=== PATIENT | male | born 1955 | race Caucasian/White ===

== ENCOUNTER → 2024-04-18 09:01 | Outpatient (CLI) | payer MEDICARE, SELFPAY ==
[2024-04-18 10:18] LABS: Add Manual Diff / Slide Review NO; Basophils Absolute Auto 0 /uL (0-100); Basophils Percent Auto 0.3 % (0-2); Eosinophils Absolute Auto 200 /uL (0-450); Eosinophils Percent Auto 1.8 % (2-4); Hematocrit 33.8 % (41-53); Hemoglobin 11.1 g/dL (13.5-17.5); Lymphocytes Absolute Auto 800 /uL (1100-4500); Lymphocytes Percent Auto 9.6 % (25-40); Mean Corpuscular HGB Conc 32.9 % (30-36); Mean Corpuscular Hemoglobin 29.9 PG (26-34); Mean Corpuscular Volume 91.1 fL (80-100); Monocytes Absolute Auto 700 /uL (0-900); Monocytes Percent Auto 8.1 % (3-14); Neutrophils Absolute Auto 6900 /uL (1500-7000); Neutrophils Percent Auto 80.2 % (50-75); Platelet Count 153 X10^3/uL (150-400); Red Blood Cell Count 3.71 X10^6/uL (4.5-5.9); Red Cell Distribution Width 14.6 % (11.6-14.8); White Blood Cell Count 8.7 X10^3/uL (4.5-11.0)
[2024-04-18 10:32] LABS: Hemoglobin A1C% w Est Avg Glu 6.7 % (4.0-6.0)
[2024-04-18 10:45] LABS: BUN Creatinine Ratio 28.6 (6-22); Blood Urea Nitrogen 32 mg/dL (9-20); Calcium 9.4 mg/dL (8.4-10.2); Carbon Dioxide 25 mmol/L (22-32); Chloride 109 mmol/L (98-107); Cholesterol 80 mg/dL (140-199); Estimated Glomerular Filt Rate > 60 mL/min (>60); Glucose 103 mg/dL (80-110); HDL Cholesterol 43 mg/dL (40-60); HEMOLYSIS < 15 (0-50); LDL Cholesterol Calculated 24 mg/dL (<100); Sodium 141 mmol/L (137-145); Triglycerides 66 mg/dL (35-150)
== END ==
PROVIDERS: PCP Nurse Practitioner Family; Referring Provider Nurse Practitioner Family; Visit Provider Nurse Practitioner Family
DX: L02.91 Cutaneous abscess, unspecified (principal); E11.9 Type 2 diabetes mellitus without complications; I10 Essential (primary) hypertension; E78.5 Hyperlipidemia, unspecified
CPT/HCPCS: 36415; 80048; 80061; 83036; 85025; 87070; 87075; 87205

== ENCOUNTER → 2024-06-19 11:21 | Outpatient (CLI) | payer MEDICARE, SELFPAY ==
--- NOTE | 2024-06-19 11:23 | DI.RAD.S_ITS ---
PROCEDURE: XR ANKLE LT MIN 3V INDICATIONS: Wound on medial malleolus, concern for osteomyelitis TECHNIQUE: 3 views of the ankle were acquired. COMPARISON: None. FINDINGS: Bones: No fractures or dislocations. Ankle mortise is normally aligned. No suspicious bony lesions. Soft tissues: No tibiotalar joint effusion. Achilles tendon appears normal. Moderate peripheral vascular calcification. No radiodense foreign bodies. No soft tissue gas. IMPRESSION: No radiographic evidence of osteomyelitis, however radiographs are insensitive in the early phase, and if there is further concern for osteomyelitis, MR imaging is recommended. Dictated by: Rose Benavides M.D. on 06/19/2024 at 14:50 Approved by: Rose Benavides M.D. on 06/19/2024 at 14:52
== END ==
PROVIDERS: PCP Nurse Practitioner Family; Referring Provider Nurse Practitioner Family; Visit Provider Nurse Practitioner Family
DX: E11.621 Type 2 diabetes mellitus with foot ulcer (principal); L97.509 Non-pressure chronic ulcer of other part of unspecified foot with unspecified severity; I70.202 Unspecified atherosclerosis of native arteries of extremities, left leg
CPT/HCPCS: 73610

== ENCOUNTER → 2024-06-26 09:02 | Outpatient (CLI) | payer MEDICARE, SELFPAY | LOC: WC 09:06 | PROVIDERS: PCP Nurse Practitioner Family; Referring Provider Nurse Practitioner Family; Visit Provider Surgery | DX: E11.621 Type 2 diabetes mellitus with foot ulcer (principal); L97.322 Non-pressure chronic ulcer of left ankle with fat layer exposed; L53.8 Other specified erythematous conditions; L08.9 Local infection of the skin and subcutaneous tissue, unspecified | CPT/HCPCS: 11042; 87070; 87075; 87205; 99203; 99214 ==

== ENCOUNTER → 2024-07-03 08:25 | Outpatient (CLI) | payer MEDICARE, SELFPAY ==
--- NOTE | 2024-07-03 08:26 | DI.US.S_ITS ---
PROCEDURE: US ARTERIAL DUPLEX LE LT INDICATIONS: eval arterial status TECHNIQUE: Color and pulse Doppler interrogation was performed of the left lower extremity arterial system, with image documentation. COMPARISON: None. FINDINGS: Common femoral artery: 127 cm/sec, with biphasic flow. Deep femoral artery: 65 cm/sec, with biphasic flow. Proximal superficial femoral artery: 97 cm/sec, with biphasic flow. Mid superficial femoral artery: 95 cm/sec, with biphasic flow. Distal superficial femoral artery: 71 cm/sec, with biphasic flow. Popliteal artery: 69 cm/sec, with biphasic flow. Posterior tibial artery: 75 cm/sec, with biphasic flow. Anterior tibial artery/dorsalis pedis: 38 cm/sec, with biphasic flow. Rodriguez-scale imaging description: Mild degree of plaque throughout the left lower extremity arterial system. IMPRESSION: No hemodynamically significant stenosis involving left lower extremity arterial system. Dictated by: Mayco Browne M.D. on 07/03/2024 at 11:38 Approved by: Mayco Browne M.D. on 07/03/2024 at 11:39
== END ==
LOC: US 08:26
PROVIDERS: PCP Nurse Practitioner Family; Referring Provider Surgery; Visit Provider Surgery
DX: E11.621 Type 2 diabetes mellitus with foot ulcer (principal); L97.529 Non-pressure chronic ulcer of other part of left foot with unspecified severity
CPT/HCPCS: 93926

== ENCOUNTER → 2024-07-04 08:19 | Outpatient (CLI) | payer MEDICARE, SELFPAY | PROVIDERS: PCP Nurse Practitioner Family; Referring Provider Nurse Practitioner Family; Visit Provider Surgery | DX: E11.622 Type 2 diabetes mellitus with other skin ulcer (principal); L97.322 Non-pressure chronic ulcer of left ankle with fat layer exposed; L53.8 Other specified erythematous conditions | CPT/HCPCS: 11042 ==

== ENCOUNTER → 2024-07-11 08:37 | Outpatient (CLI) | payer MEDICARE, SELFPAY | PROVIDERS: PCP Nurse Practitioner Family; Referring Provider Nurse Practitioner Family; Visit Provider Surgery | DX: L97.322 Non-pressure chronic ulcer of left ankle with fat layer exposed (principal); E11.621 Type 2 diabetes mellitus with foot ulcer; L53.9 Erythematous condition, unspecified; B35.9 Dermatophytosis, unspecified | CPT/HCPCS: 11042 ==

== ENCOUNTER → 2024-07-18 08:11 | Outpatient (CLI) | payer MEDICARE, SELFPAY | LOC: WC 08:54 | PROVIDERS: PCP Nurse Practitioner Family; Referring Provider Nurse Practitioner Family; Visit Provider Surgery | DX: E11.621 Type 2 diabetes mellitus with foot ulcer (principal); L97.322 Non-pressure chronic ulcer of left ankle with fat layer exposed; R23.4 Changes in skin texture; L53.9 Erythematous condition, unspecified; B35.9 Dermatophytosis, unspecified | CPT/HCPCS: 11042 ==

== ENCOUNTER → 2024-07-25 08:41 | Outpatient (CLI) | payer MEDICARE, SELFPAY | LOC: WC 08:43 | PROVIDERS: PCP Nurse Practitioner Family; Referring Provider Nurse Practitioner Family; Visit Provider Surgery | DX: E11.621 Type 2 diabetes mellitus with foot ulcer (principal); L97.322 Non-pressure chronic ulcer of left ankle with fat layer exposed; R23.4 Changes in skin texture; R21 Rash and other nonspecific skin eruption; L53.8 Other specified erythematous conditions | CPT/HCPCS: 11042 ==

== ENCOUNTER → 2024-07-29 11:10 | Outpatient (CLI) | payer MEDICARE, SELFPAY ==
[2024-07-29 11:54] LABS: Hemoglobin A1C% w Est Avg Glu 6.1 % (4.0-6.0)
[2024-07-29 15:14] LABS: Add Manual Diff / Slide Review NO; Basophils Absolute Auto 100 /uL (0-100); Basophils Percent Auto 0.7 % (0-2); Eosinophils Absolute Auto 200 /uL (0-450); Eosinophils Percent Auto 2.3 % (2-4); Hematocrit 33.1 % (41-53); Hemoglobin 10.6 g/dL (13.5-17.5); Lymphocytes Absolute Auto 800 /uL (1100-4500); Lymphocytes Percent Auto 9.6 % (25-40); Mean Corpuscular HGB Conc 32.2 % (30-36); Monocytes Absolute Auto 400 /uL (0-900); Monocytes Percent Auto 5.2 % (3-14); Neutrophils Absolute Auto 6700 /uL (1500-7000); Neutrophils Percent Auto 82.2 % (50-75); Platelet Count 250 X10^3/uL (150-400); Red Cell Distribution Width 16.9 % (11.6-14.8); White Blood Cell Count 8.2 X10^3/uL (4.5-11.0)
== END ==
PROVIDERS: PCP Nurse Practitioner Family; Referring Provider Nurse Practitioner Family; Visit Provider Nurse Practitioner Family
DX: E11.9 Type 2 diabetes mellitus without complications (principal); N40.0 Benign prostatic hyperplasia without lower urinary tract symptoms; F32.A Depression, unspecified; I10 Essential (primary) hypertension; E78.5 Hyperlipidemia, unspecified
CPT/HCPCS: 36415; 83036; 85025

== ENCOUNTER → 2024-07-31 10:46 | Outpatient (CLI) | payer MEDICARE, SELFPAY ==
[2024-07-31 12:16] LABS: Creatinine Urine Random 99.05 mg/dL
[2024-07-31 12:34] LABS: Microalbumin Urine Random 34.9 mg/dL (0-1.6)
[2024-07-31 13:08] LABS: HEMOLYSIS < 15 (0-50); Iron 60 ug/dL (49-181)
[2024-07-31 13:23] LABS: Percent Iron Saturation 17 % (20-50); Total Iron Binding Capacity 357 ug/dL (261-462); Transferrin 304 mg/dL (206-381)
[2024-07-31 13:53] LABS: TSH w/ Reflex to FT4 4.71 uIU/mL (0.47-4.68)
[2024-07-31 14:12] LABS: Vitamin B12 365 pg/mL (239-931)
[2024-07-31 15:27] LABS: Free T4, Direct Thyroxine 1.84 ng/dL (0.78-2.19)
== END ==
PROVIDERS: PCP Nurse Practitioner Family; Referring Provider Nurse Practitioner Family; Visit Provider Nurse Practitioner Family
DX: E11.9 Type 2 diabetes mellitus without complications (principal); L02.91 Cutaneous abscess, unspecified; I10 Essential (primary) hypertension; D64.9 Anemia, unspecified
CPT/HCPCS: 36415; 82043; 82570; 82607; 83540; 83550; 84439; 84443

== ENCOUNTER → 2024-08-01 09:49 | Outpatient (CLI) | payer MEDICARE, SELFPAY | LOC: WC 09:58 | PROVIDERS: PCP Nurse Practitioner Family; Referring Provider Nurse Practitioner Family; Visit Provider Surgery | DX: E11.621 Type 2 diabetes mellitus with foot ulcer (principal); L97.322 Non-pressure chronic ulcer of left ankle with fat layer exposed; L53.8 Other specified erythematous conditions; R21 Rash and other nonspecific skin eruption; R23.4 Changes in skin texture | CPT/HCPCS: 11042 ==

== ENCOUNTER → 2024-08-02 08:50 | Outpatient (CLI) | payer MEDICARE, SELFPAY ==
--- NOTE | 2024-11-22 09:36 | DIAB.MNT ---
Initial Diabetes Medical Nutrition Therapy Assessment Name: Tone Cason Date: 08/02/24 Time: 9-10a Dx: Type II Diabetes Tone presents for initial DM visit with sister, Kiersten. Dx in 1998. PMH of stroke. GI upset. Endorses emesis q 5 days. PMH of gastroparesis. FH of DM with mother, sister, and maternal grandmother. uses [employer] Whe[employer] (M[employer]). Treats lows with ice cream. Likes salad. Going to wound care for LE wound. Uses ac insulin on SSI. Sister cooks meals. When BG is low, endorses fatigue, shaky, confusion. Reuses injection needles. Not using sharps container to dispose of needles. Wants simple healthy meal ideas. Diet Recall: sn: premier protein shake L: banan 1-2 OR shredded wheat with milk +/- sugar OR MOW fruit or salad D: pizza x2 slices OR frozen meal (noodles/chx/broccoli OR potatoes/ham Protein snacks through the day: nuts, protein bars water 60oz +, crystal light Not taking long acting insulin, only using correction. If BG 150-- 2-3u of ac insulin BG 200s-- 5u BG 300s-- 8-10u Anthropometrics: Ht: 5'10 Wt: 176# Physical Activity: Not discussed Self-Monitoring Blood Glucose: CGM use with in range time at goal. Some excessive tiem >250mg/dl. Most elevations occur after meals. 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 Provided appropriate educational handouts. Discussed the following topics: Completed intake assessment. Discussed barriers to care. Plate Method, impact of macronutrients on blood sugar, meal timing, pairing macronutrients and spreading out carbohydrates for better blood glucose management Recommended servings for carbohydrates at meals and snacks Brainstormed appropriate meal/snack ideas based on food preferences Safe disposal of sharps and injection technique Created SMART goals for patient self-care and success. Goals: Try a new meal Track food/insulin in CGM Try 10u long acting insulin, as rx'd only use short acting if >200mg/dl Ask pharmacy for shorter needles Change injection needle with each use Use proper disposal of sharps Follow-up: NISH LYNEN follow-up in 2-3 weeks Alma Hernandez RDN, MAGED Certified Diabetes Care and Athletic Trainer P: [phone] Thank you for this referral
== END ==
PROVIDERS: PCP Nurse Practitioner Family; Referring Provider Nurse Practitioner Family
DX: E11.9 Type 2 diabetes mellitus without complications (principal); Z86.73 Personal history of transient ischemic attack (TIA), and cerebral infarction without residual deficits; Z71.3 Dietary counseling and surveillance; Z83.3 Family history of diabetes mellitus; Z79.84 Long term (current) use of oral hypoglycemic drugs
CPT/HCPCS: 97802

== ENCOUNTER → 2024-08-08 08:41 | Outpatient (CLI) | payer MEDICARE, SELFPAY | LOC: WC 08:46 | PROVIDERS: PCP Nurse Practitioner Family; Referring Provider Nurse Practitioner Family; Visit Provider Surgery | DX: L97.322 Non-pressure chronic ulcer of left ankle with fat layer exposed (principal); E11.621 Type 2 diabetes mellitus with foot ulcer; L53.9 Erythematous condition, unspecified; R21 Rash and other nonspecific skin eruption; R23.4 Changes in skin texture | CPT/HCPCS: 11042; 99213 ==

== ENCOUNTER → 2024-08-10 08:52 | Outpatient (CLI) | payer MEDICARE, SELFPAY ==
--- NOTE | 2024-08-10 08:53 | DI.MRI.S_ITS ---
PROCEDURE: MR ANKLE LT WO/W CON INDICATIONS: eval for osteo TECHNIQUE: Noncontrast sagittal T1 spin echo and T2 fast spin echo with fat saturation, axial proton density fast spin echo and T2 fast spin echo with fat saturation, axial T1 spin echo with fat saturation, coronal T1 spin echo and T2 fast spin echo with fat saturation through the ankle/hindfoot. Post-contrast axial, coronal, and sagittal T1 spin echo with fat saturation through the ankle/hindfoot. COMPARISON: [facility], CR, XR ANKLE LT MIN 3V, 06/19/2024, 11:19. FINDINGS: Image quality: Excellent. Bones and joints: Mild midfoot and hindfoot joint osteoarthritic changes are seen with joint space narrowing and subchondral sclerosis. There is very mild marrow edema involving lateral periphery of lateral malleolus tip without discrete fracture line or cortical erosion. No area of abnormal intraosseous enhancement. No hindfoot coalitions. No osteochondral injuries of the talar dome. Small amount of tibiotalar joint effusion, no gross loose bodies. Medial structures: Subcutaneous soft tissue edema over medial malleolus is seen. No discrete drainable peripherally enhancing fluid collection is identified. The posterior tibialis tendon is mildly thickened at the level of distal talus and talonavicular joint. The flexor digitorum longus, and flexor hallucis longus tendons are intact. The posterior tibial neurovascular bundle appears normal within the tarsal tunnel, without extrinsic mass effect. The deltoid ligament and spring ligament are intact. Lateral structures: The anterior talofibular, calcaneofibular, and posterior talofibular ligaments appear intact. More superiorly, the anterior and posterior tibiofibular ligaments appear intact, as is the intermalleolar ligament. The tibiofibular syndesmosis is normal in width at 2 mm or less. The peroneus brevis tendon is intact. Peroneus longus tendinosis at the level of lateral malleolus tip extending to the level of cuboid bone is seen. The sinus tarsi demonstrates normal fatty signal, without edema, fibrosis, or cyst formation. Anterior structures: The tibialis anterior, extensor hallucis longus, and extensor digitorum longus tendons appear intact. The dorsal talonavicular ligament appears intact. Posterior and plantar structures: Achilles tendon is intact. Medial and lateral bands of the plantar fascia are of normal thickness. No abductor digiti quinti muscle atrophy to suggest Mehta neuropathy. IMPRESSION: 1. Soft tissue edema and swelling over medial malleolus without discrete drainable abscess collection. Small joint effusion, no intra-articular loose bodies. 2. Mild midfoot and hindfoot joint osteoarthritis. No evidence of osteomyelitis. Nonspecific mild edema involving lateral periphery of lateral malleolus tip which may represent contusion. No area of abnormal intraosseous enhancement. 3. Mild tendinosis involving posterior tibialis tendon at the level of distal talus and talonavicular joint. Mild tendinosis also seen involving peroneus longus tendon at the level of lateral malleolus tip extending to the level of cuboid. 4. Ankle ligaments are intact. No enhancing soft tissue mass. Dictated by: John Pedersen M.D. on 08/12/2024 at 8:38 Approved by: John Pedersen M.D. on 08/12/2024 at 8:46
== END ==
PROVIDERS: PCP Nurse Practitioner Family; Referring Provider Surgery; Visit Provider Surgery
DX: L97.322 Non-pressure chronic ulcer of left ankle with fat layer exposed (principal); M25.472 Effusion, left ankle; M19.072 Primary osteoarthritis, left ankle and foot; R60.0 Localized edema
CPT/HCPCS: 73723; A9579

== ENCOUNTER → 2024-08-14 08:53 | Outpatient (CLI) | payer MEDICARE, SELFPAY | LOC: WC 08:54 | PROVIDERS: PCP Nurse Practitioner Family; Referring Provider Nurse Practitioner Family; Visit Provider Surgery | DX: E11.622 Type 2 diabetes mellitus with other skin ulcer (principal); L97.322 Non-pressure chronic ulcer of left ankle with fat layer exposed; R23.4 Changes in skin texture; R21 Rash and other nonspecific skin eruption; L53.8 Other specified erythematous conditions | CPT/HCPCS: 97602; 99213 ==

== ENCOUNTER → 2024-09-06 10:50 | Outpatient (CLI) | payer MEDICARE, SELFPAY ==
[2024-09-06 12:16] LABS: Add Manual Diff / Slide Review NO; Basophils Absolute Auto 0 /uL (0-100); Basophils Percent Auto 0.6 % (0-2); Eosinophils Absolute Auto 200 /uL (0-450); Eosinophils Percent Auto 3.2 % (2-4); Hematocrit 38.6 % (41-53); Hemoglobin 12.6 g/dL (13.5-17.5); Lymphocytes Absolute Auto 800 /uL (1100-4500); Lymphocytes Percent Auto 14.6 % (25-40); Mean Corpuscular HGB Conc 32.7 % (30-36); Mean Corpuscular Hemoglobin 28.3 PG (26-34); Mean Corpuscular Volume 86.7 fL (80-100); Monocytes Absolute Auto 400 /uL (0-900); Monocytes Percent Auto 6.9 % (3-14); Neutrophils Absolute Auto 4200 /uL (1500-7000); Neutrophils Percent Auto 74.7 % (50-75); Platelet Count 163 X10^3/uL (150-400); Red Blood Cell Count 4.46 X10^6/uL (4.5-5.9); Red Cell Distribution Width 16.4 % (11.6-14.8); White Blood Cell Count 5.6 X10^3/uL (4.5-11.0)
[2024-09-06 12:30] LABS: Hemoglobin A1C% w Est Avg Glu 6.3 % (4.0-6.0)
[2024-09-06 12:35] LABS: Alanine Aminotransferase 55 IU/L (<50); Albumin 4.7 g/dL (3.5-5.0); Alkaline Phosphatase 76 U/L (38-126); Aspartate Aminotransferase 40 IU/L (17-59); BUN Creatinine Ratio 20.9 (6-22); Bilirubin Total 0.5 mg/dL (0.2-1.3); Blood Urea Nitrogen 27 mg/dL (9-20); Calcium 9.7 mg/dL (8.4-10.2); Carbon Dioxide 29 mmol/L (22-32); Chloride 103 mmol/L (98-107); Estimated Glomerular Filt Rate > 60 mL/min (>60); Globulin 2.3 g/dL (1.7-4.1); Glucose 77 mg/dL (80-110); HEMOLYSIS < 15 (0-50); Potassium 4.8 mmol/L (3.4-5.1); Sodium 141 mmol/L (137-145)
[2024-09-06 13:00] LABS: TSH w/ Reflex to FT4 4.83 uIU/mL (0.47-4.68)
[2024-09-06 13:28] LABS: Free T4, Direct Thyroxine 1.61 ng/dL (0.78-2.19)
== END ==
PROVIDERS: PCP Nurse Practitioner Family; Referring Provider Nurse Practitioner Family; Visit Provider Nurse Practitioner Family
DX: E11.9 Type 2 diabetes mellitus without complications (principal); I10 Essential (primary) hypertension; Z86.73 Personal history of transient ischemic attack (TIA), and cerebral infarction without residual deficits; R79.89 Other specified abnormal findings of blood chemistry
CPT/HCPCS: 36415; 80053; 83036; 84439; 84443; 85025

== ENCOUNTER → 2024-10-25 07:16 | Outpatient (CLI) | payer MEDICARE, SELFPAY ==
[2024-10-25 08:55] LABS: Hemoglobin A1C% w Est Avg Glu 6.1 % (4.0-6.0)
[2024-10-25 09:31] LABS: TSH w/ Reflex to FT4 5.75 uIU/mL (0.47-4.68)
[2024-10-25 10:47] LABS: Free T4, Direct Thyroxine 1.59 ng/dL (0.78-2.19)
== END ==
PROVIDERS: PCP Nurse Practitioner Family; Referring Provider Nurse Practitioner Family; Visit Provider Nurse Practitioner Family
DX: E78.2 Mixed hyperlipidemia (principal); I10 Essential (primary) hypertension; R79.89 Other specified abnormal findings of blood chemistry; E11.628 Type 2 diabetes mellitus with other skin complications
CPT/HCPCS: 36415; 83036; 84439; 84443

== ENCOUNTER → 2024-10-31 11:09 | Outpatient (CLI) | payer MEDICARE, SELFPAY ==
--- NOTE | 2024-10-31 11:12 | DI.RAD.S_ITS ---
PROCEDURE: XR SHOULDER LT 3V INDICATIONS: Left shoulder pain after fall rule out dislocation TECHNIQUE: 3 views of the shoulder were acquired. COMPARISON: None. FINDINGS: [id number] degenerative changes of the left acromioclavicular and glenohumeral joints with joint space narrowing and osteophytes. No radiographic evidence of displaced fracture, dislocation or high attenuation soft tissue foreign body. Median sternotomy, CABG, left atrial appendage clip, of vascular calcifications partially imaged. IMPRESSION: Degenerative changes left shoulder. If symptoms persist or worsen, or there is high clinical suspicion of left shoulder abnormality, MRI could be performed. Dictated by: Lawrence Banks M.D. on 10/31/2024 at 22:02 Approved by: Lawrence Banks M.D. on 10/31/2024 at 22:04
== END ==
PROVIDERS: PCP Nurse Practitioner Family; Referring Provider Nurse Practitioner Family; Visit Provider Nurse Practitioner Family
DX: M25.512 Pain in left shoulder (principal)
CPT/HCPCS: 73030

== ENCOUNTER → 2024-11-13 13:50 | Outpatient (CLI) | payer MEDICARE, SELFPAY ==
--- NOTE | 2024-11-22 09:52 | DIAB.MNTFU ---
Follow-up Diabetes Medical Nutrition Therapy Assessment Name: Tone Cason Date: 11/13/24 Time: 2-3p Dx: Type II Diabetes Tone presents for DM visit with sister, Kiersten. Dx in 1998. PMH of stroke. Eating q 1-2 hours. If BG >170mg/dl takes short acting insulin 7u. If >150 and rising will take 5u. Increased lows since last visit. If waking with 100mg/dl or less, holding long acting insulin. Cut out potatoes due to BG elevations. Not rotating injection sites. Is considering changing needles with each injection. has not started using proper sharps disposal. Not tracking food or insulin dosing. Reports limited function in left hand, which has impacted ability to change needle and wear he injections. Has had falls from lows per report. Diet Recall: 2p: 3-4 frozen burritos 3p Ramen or burrito grazing: berries, veggies, crackers, cheese, meat water, crystal light, tea d/c of premier protein Anthropometrics: Ht: 5'10 Wt: 167# 10/2024 176# 07/2024 Physical Activity: Not discussed Self-Monitoring Blood Glucose: CGM use with in range time at goal. Reduced hyperglycemia, however also increase lows. TIR: 4% very high 16% high 78% in range 2% low <1% very low avmg/dl GMI: 6.9% std dev: 47 mg/dl variation: 31.5% Last TIR: 5% very high 22% high 73% in range 0% low <1% very low avmg/dl GMI: 7.1% std dev: 50 mg/dl variation: 31% Diabetes Medications: 1000mg Metformin AM 500mg Metformin PM 10u Glargine AM SSI Pertinent Labs: HgA12c: 6.7% 03/2024 6.1% 07/2024 Past Medical History: (Last Updated 10/31/24 @ 09:57 by [facility] Anemia BPH (benign prostatic hyperplasia) Cervical radicular pain Depression Diabetes mellitus Gastroesophageal reflux disease Gastroparesis due to DM History of CVA (cerebrovascular accident) Hyperlipidemia Hypertension Infected sebaceous cyst 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 Provided appropriate educational handouts. Discussed the following topics: Proper treatment of lows Meal timing Importance of proper injection technique Sharps disposal CHO portions Created SMART goals for patient self-care and success. Goals: Try a new meal- in progress Track food/insulin in CGM- not met Try 10u long acting insulin, as rx'd- met only use short acting if >200mg/dl- not met Ask pharmacy for shorter needles- not met Change injection needle with each use- not met Use proper disposal of sharps- not met Try eating q 3-5 hours- new Reduce ac insulin to prevent lows - new Rotate injection sites- new Alan injection needles- new food and nutrition services supervisor jug for sharps- new Follow-up: NISH LYNNE follow-up in 3-4 weeks Alma Hernandez RDN, MAGED Certified Diabetes Care and Faculty Neuropsychologist P: [phone] Thank you for this referral
== END ==
LOC: DIET 13:51
PROVIDERS: PCP Nurse Practitioner Family; Referring Provider Nurse Practitioner Family
DX: E11.9 Type 2 diabetes mellitus without complications (principal); Z71.3 Dietary counseling and surveillance; Z79.84 Long term (current) use of oral hypoglycemic drugs; Z79.4 Long term (current) use of insulin
CPT/HCPCS: 97803

== ENCOUNTER → 2024-12-06 08:35 | Outpatient (CLI) | payer MEDICARE, SELFPAY ==
--- NOTE | 2024-12-06 09:04 | DIAB.FU ---
Follow-up Diabetes Education Assessment Name: Tone Cason Date: 12/06/24 Time: -081c Dx: Type II Diabetes Tone presents for DM visit. Dx in 1998. PMH of stroke. No longer snacking, but also only eating 1-2x per day. Portions are large with 3-4 burritos in a sitting (90-120g CHO) States meals have to be microwaveable due to limited abilities to cook. 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 She reportedly has dementia and he and his sister take shifts caring for her. Rotating sites, using abdomen. Changing needles more often, but not every time. Using sharps disposal appropriately. Main concern today are lows. Seem to occur after fast acting insulin. Either taking too much too late after eating OR taking without eating for correction dosing. Diet Recall: 5p: 3-4 frozen burritos or 4-5 mini corn dogs OR 4 chicken nuggets sn: nothing or ice cream water, crystal light, tea Anthropometrics: Ht: 5'10 Wt: 167# 10/2024 176# 07/2024 Physical Activity: Not discussed Self-Monitoring Blood Glucose: CGM use with in range time at goal. Reduced hyperglycemia and hypoglycemia since last visit. TIR: 3% very high 12% high 84% in range 1% low <1% very low avmg/dl GMI: 6.7% std dev: 46 mg/dl variation: 32.9% Last TIR: 4% very high 16% high 78% in range 2% low <1% very low avmg/dl GMI: 6.9% std dev: 47 mg/dl variation: 31.5% Diabetes Medications: 1000mg Metformin AM 500mg Metformin PM 10u Glargine AM SSI -- 5-7u Pertinent Labs: HgA12c: 6.7% 03/2024 6.1% 07/2024 Past Medical History: (Last Updated 10/31/24 @ 09:57 by Karen Dowell 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 Provided appropriate educational handouts. Discussed the following topics: Dosing insulin and avoiding lows Meal timing Small frequent meals Adding veggies to the day Correction dosing for elevations Insulin action time and rec dosing time Created SMART goals for patient self-care and success. Goals: Try eating q 3-5 hours- in progress Reduce ac insulin to prevent lows - in progress Rotate injection sites- met Change injection needles- improved oil well services superintendent jug for sharps- met eat raw veggies Try 3 small meals per day - new Try insulin changes (2-3u for correction, 5-6u pre meal)- new Follow-up: NISH LYNNE follow-up in 3-4 weeks Alma Hernandez RDN, MAGED Certified Diabetes Care and Assistant District Attorney P: [phone] Thank you for this referral
[2024-12-06 10:02] LABS: Cholesterol 163 mg/dL (140-199); HDL Cholesterol 65 mg/dL (40-60); Triglycerides 95 mg/dL (35-150)
[2024-12-06 10:04] LABS: Hemoglobin A1C% w Est Avg Glu 5.7 % (4.0-6.0)
== END ==
PROVIDERS: PCP Nurse Practitioner Family; Visit Provider Nurse Practitioner Family
DX: E11.9 Type 2 diabetes mellitus without complications (principal); Z79.84 Long term (current) use of oral hypoglycemic drugs; Z79.4 Long term (current) use of insulin; Z71.3 Dietary counseling and surveillance
CPT/HCPCS: 36415; 80061; 83036; 97803

== ENCOUNTER → 2024-12-12 09:49 | Outpatient (CLI) | payer MEDICARE, SELFPAY ==
[2024-12-12 10:50] LABS: Hematocrit 36.5 % (41-53); Hemoglobin 11.9 g/dL (13.5-17.5)
[2024-12-12 11:03] LABS: Blood Urea Nitrogen 31 mg/dL (9-20); Calcium 9.8 mg/dL (8.4-10.2); Carbon Dioxide 32 mmol/L (22-32); Chloride 102 mmol/L (98-107); Estimated Glomerular Filt Rate 53 mL/min (>60); Glucose 137 mg/dL (70-99); HEMOLYSIS < 15 (0-50); Iron 102 ug/dL (49-181); Phosphorous 4.3 mg/dL (2.3-3.7); Potassium 4.7 mmol/L (3.4-5.1); Sodium 142 mmol/L (137-145)
[2024-12-12 11:12] LABS: Total Iron Binding Capacity 401 ug/dL (261-462)
[2024-12-12 12:39] LABS: Protein (Total) Urine Random 12 mg/dL (0-12); Protein Creatinine Ratio Urine 0.64 GRAM/24H
== END ==
PROVIDERS: PCP Nurse Practitioner Family; Referring Provider Student in an Organized Health Care Education/Training Program; Visit Provider Student in an Organized Health Care Education/Training Program
DX: D50.0 Iron deficiency anemia secondary to blood loss (chronic) (principal); D63.1 Anemia in chronic kidney disease; D70.9 Neutropenia, unspecified; E83.30 Disorder of phosphorus metabolism, unspecified; N05.9 Unspecified nephritic syndrome with unspecified morphologic changes; N25.81 Secondary hyperparathyroidism of renal origin; R80.9 Proteinuria, unspecified
CPT/HCPCS: 36415; 80048; 82570; 83540; 83550; 83970; 84100; 84156; 85014; 85018

== ENCOUNTER 2024-12-23 12:18 | Observation (INO) | payer MEDICARE, SELFPAY ==
[2024-12-23] VITALS (17 sets, daily range): BP systolic 119–189; BP diastolic 61–86; PULSE 47–53; RESP 16–24; TEMP 36.1–36.7; O2SAT 95–99; BMI 25.8
--- NOTE | 2024-12-23 12:43 | DI.RAD.S_ITS ---
PROCEDURE: XR CHEST 1V INDICATIONS: Chest Pain TECHNIQUE: One view of the chest was acquired. COMPARISON: None. FINDINGS: Surgical changes and devices: Median sternotomy wires are seen. Lungs and pleura: Pulmonary vascular congestion. No definite focal infiltrate. No pleural effusions or pneumothorax. Mediastinum: Mediastinal contours appear normal. Heart size is enlarged. Bones and chest wall: No suspicious bony lesions. Overlying soft tissues appear unremarkable. IMPRESSION: Cardiomegaly and mild congestion. No definite focal infiltrate. No pleural effusion or pneumothorax. Dictated by: John Pedersen M.D. on 12/23/2024 at 13:14 Approved by: John Pedersen M.D. on 12/23/2024 at 13:15
--- NOTE | 2024-12-23 12:57 | EKG_ITS ---
[address] [id number] Test Date: 2024-12-23 Pat Name: Tone Cason Department: Room: 211 Gender: Male Service Operations Manager: ANDI : [id number] Requested By: Order Number: [id number] Reading MD: Mayco Capone Measurements Intervals [place] Rate: 49 P: 89 CO: 328 QRS: -20 QRSD: 112 T: 59 QT: 456 QTc: 411 Interpretive Statements Sinus bradycardia with 1st degree AV block Incomplete left bundle branch block Electronically Signed On 01-03-2025 8:48:57 PDT by Mayco Capone
[2024-12-23 13:00] LABS: Add Manual Diff / Slide Review NO; Hematocrit 33.9 % (41-53); Hemoglobin 11.1 g/dL (13.5-17.5); Lymphocytes Absolute Auto 900 /uL (1100-4500); Mean Corpuscular HGB Conc 32.6 % (30-36); Mean Corpuscular Hemoglobin 28.9 PG (26-34); Mean Corpuscular Volume 88.6 fL (80-100); Platelet Count 198 X10^3/uL (150-400)
[2024-12-23 13:06] LABS: INR 1.0 (0.9-1.3); Prothrombin Time 11.8 SECONDS (9.4-12.5)
[2024-12-23 13:09] LABS: PTT Partial Thromboplastin Tim 33 SECONDS (25.1-36.5)
[2024-12-23 13:14] LABS: Alanine Aminotransferase 14 IU/L (<50); Albumin 4.3 g/dL (3.5-5.0); Albumin Globulin Ratio 1.4 (1.0-2.8); Alkaline Phosphatase 74 U/L (38-126); Blood Urea Nitrogen 35 mg/dL (9-20); Calcium 9.4 mg/dL (8.4-10.2); Carbon Dioxide 25 mmol/L (22-32); Chloride 109 mmol/L (98-107); Creatine Kinase 77 U/L (55-170); Estimated Glomerular Filt Rate > 60 mL/min (>60); Globulin 3.0 g/dL (1.7-4.1); Glucose 131 mg/dL (70-99); HEMOLYSIS 25 (0-50); Lipase 21 U/L (23-300); Magnesium 1.8 mg/dL (1.6-2.3); Sodium 140 mmol/L (137-145); Total Protein 7.3 g/dL (6.3-8.2)
[2024-12-23 13:17] LABS: Potassium 5.6 mmol/L (3.4-5.1)
[2024-12-23 13:25] LABS: NT-proBNP (BNP-Adult 18+) 1470 pg/mL (<125); Troponin I < 0.012 ng/mL (0.01-0.034)
[2024-12-23 13:38] LABS: Influenza A - CEPHEID Flu A NEGATIVE (NEGATIVE); Influenza B - CEPHEID Flu B NEGATIVE (NEGATIVE)
[2024-12-23 13:45] LABS: COVID-19 CEPHEID 4-PLEX PCR Negative (Negative)
[2024-12-23] MEDS: FUROSEMIDE 40 MG/4 ML VIAL IV ×2 (15:32→20:28)
--- NOTE | 2024-12-23 16:15 | ED_ITS ---
HPI - Chest Pain General Chief Complaint: Chest Pain Stated Complaint: cough ,chest pain, wheezing Time Seen by Provider: 12/23/24 15:18 Source: patient Mode of arrival: Ambulatory History of Present Illness HPI narrative: 69-year-old male with a history of 4 vessel coronary artery bypass surgery presents with left-sided chest pain for the past 2 weeks off and on. He is a little short of breath as well and more so upon exertion. No history of congestive heart failure that he knows of. History of diabetes as well. Related Data Home Medications ?Medication ?Instructions ?Recorded ?Confirmed aspirin 81 mg tablet,delayed 81 mg PO DAILY 04/17/24 0 10/31/24 release ferrous gluconate 324 mg (38 mg 324 mg PO DAILY 10/31/24 iron) tablet fluoxetine 40 mg capsule 40 mg PO DAILY 10/31/2410/20 lisinopril 10 mg tablet 10 mg PO DAILY 10/31/2410/20 Previous Rx's ?Medication ?Instructions ?Recorded amiodarone 200 mg tablet 200 mg PO DAILY #90 tabs atorvastatin 80 mg tablet 80 mg PO DAILY #90 tabs 03/30 finasteride 5 mg tablet 5 mg PO DAILY #90 tabs 04/17 gabapentin 300 mg capsule 300 mg PO TID #180 caps 03/30 metoprolol tartrate 25 mg tablet 12.5 mg (12 x 25 mg) PO BID #90 04/17/24 tabs promethazine 25 mg tablet 25 mg PO Q6H PRN nausea and 04/17/24 vomiting #30 tabs tamsulosin 0.4 mg capsule 0.4 mg PO DAILY #90 caps erythromycin 250 mg tablet 250 mg PO TID #360 tabs 09/19 clotrimazole 1 % topical cream 1 applic topical BID 4 weeks #45 06/19/24 grams furosemide 40 mg tablet 40 mg PO DAILY #90 tabs 06/30 10/20 metoclopramide HCl 10 mg tablet 10 mg PO BID #180 tabs 07/23/24 ferrous gluconate 324 mg (37.5 mg 324 mg PO DAILY #90 tabs 08/02/24 iron) tablet fluoxetine 60 mg tablet 60 mg PO DAILY #90 tabs 08/27 12/20 metformin 500 mg tablet 1,000 mg (2 x 500 mg) PO BID WMEAL 09/26/24 #360 tabs omeprazole 40 mg capsule,delayed 40 mg PO DAILY 4 week s #90 caps 10/11/24 release ondansetron HCl 4 mg tablet 8 mg (2 x 4 mg) PO Q12H #3 0 tabs 10/11/24 insulin glargine 100 unit/mL (3 10 unit (0.1 mL) SUBCU T BID #15 mL 12/09/24 mL) subcutaneous pen (Lantus Solostar U-100 Insulin) Allergies Allergy/AdvReac Type Severity Reaction Status Date / Time doxycycline AdvReac Intermediate Vomiting Verified 12/23/24 12:37 donezepil AdvReac Mild Vomiting Uncoded 12/23/24 12:37 Review of Systems Review of Systems ROS Unobtainable: All systems reviewed & are unremarkable except as noted in HPI and below Patient History Medical History (Updated 12/23/24 @ 19:05 by Jacob Duckworth MD) CAD (coronary artery disease) Type 2 diabetes mellitus Gastroesophageal reflux disease Anemia Infected sebaceous cyst Cervical radicular pain Gastroparesis due to DM 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 Diabetes mellitus Skin abscess History of CVA (cerebrovascular accident) Risk for falls BPH (benign prostatic hyperplasia) Depression Hypertension Hyperlipidemia Social History Smoking Status: Never smoker Smoking Status: Never smoker Exam Initial Vital Signs Initial Vital Signs: Vital Signs Temperature 97.0 F L 12/23/24 12:37 Pulse Rate 51 L 12/23/24 12:37 Respiratory Rate 18 12/23/24 12:37 Blood Pressure 189/81 H 12/23/24 12:37 Pulse Oximetry 99 12/23/24 12:37 Oxygen Delivery Method Room Air 12/23/24 12:37 General: Patient appears to be in no acute distress, acting appropriately Head: normocephalic, atraumatic, HEENT: Pupils equal round reactive, eyes tracking well, neck supple, no JVD Heart: regular rate and rhythm, no murmurs, rubs, or gallops heard Lungs: clear to auscultation, no adventitious sounds Abdomen: soft , nontender, nondistended, positive bowel sounds Neurological: no focal neurological signs, moving all extremities well, alert and oriented x3, Psych: good judgment ,good insight, mood is normal. Course Course Course Narrative: Patient looks to have a CHF picture according to his chest x-ray and labs. We will do a trial of Lasix 40 mg IV. Orders Ordered: ED Orders 12/23/24 12:43 XR chest 1V Stat EKG-12 Lead Stat 12/23/24 12:46 Covid-19 + FLU A/B + RSV - PCR Stat 12/23/24 12:51 Complete Blood Count AUTO DIFF Stat Comprehensive Metabolic Panel Stat Lipase Stat Magnesium Stat NT-proBNP (BNP-Adult 18+) Stat PTT Partial Thromboplastin Romain Stat Prothrombin Time INR Stat Troponin & CK Cardiac Panel Stat Amiodarone HCl (Amiodarone 200 Mg Tablet) 200 mg PO DAILY [facility] Aspirin (Aspirin Ec 81 Mg Tablet) 81 mg PO DAILY [facility] Atorvastatin Calcium (Atorvastatin 20 Mg Tablet) 80 mg PO DAILY [facility] Docusate Sodium (Docusate 100 Mg Capsule) 100 mg PO BID [facility] Finasteride (Finasteride 5 Mg Tablet) 5 mg PO DAILY [facility] Fluoxetine HCl (Fluoxetine 20 Mg Capsule) 40 mg PO DAILY [facility] Furosemide (Furosemide 40 Mg/4 Ml Vial) 40 mg IV Q8H [facility] Gabapentin (Gabapentin 300 Mg Capsule) 300 mg PO TID [facility] Heparin Sodium (Porcine) (Heparin 5,000 Unit/Ml Vial) 5,000 unit SUBCUT BID [facility] Insulin Glargine (Insulin Glargine 100 Unit/Ml 3ml Pen) 10 unit SUBCUT BID [facility] Lisinopril (Lisinopril 10 Mg Tablet) 10 mg PO DAILY [facility] Magnesium Hydroxide (Magnesium Hydroxide 30 Ml Udc) 30 ml PO DAILY PRN PRN Reason: Constipation Metoclopramide HCl (Metoclopramide Hcl 5 Mg Tablet) 10 mg PO BID [facility] Metoprolol Tartrate (Metoprolol Ir 25 Mg Tablet) 12.5 mg PO BID [facility] Naloxone HCl (Naloxone 0.4 Mg/Ml Vial) 0.2 mg IV Q2MIN PRN PRN Reason: Opiate Reversal Ondansetron HCl (Ondansetron 4 Mg/2 Ml Inj) 4 mg IV Q8HR PRN PRN Reason: Nausea And Vomiting Pantoprazole Sodium (Pantoprazole Dr 40 Mg Tablet) 40 mg PO 0600 [facility] Sennosides (Sennosides 8.6 Mg Tablet) 17.2 mg PO BEDTIME [facility] Tamsulosin HCl (Tamsulosin 0.4 Mg Capsule) 0.4 mg PO DAILY [facility] Discontinued Medications Aspirin (Aspirin 81 Mg Chew Tab) 324 mg PO NOW ONE Stop: 12/23/24 12:44 Last Admin: 12/23/24 17:50 Dose: Not Given Documented By: SHIRA Furosemide (Furosemide 40 Mg/4 Ml Vial) 40 mg IV NOW ONE Stop: 12/23/24 15:25 Last Admin: 12/23/24 15:32 Dose: 40 mg Documented By: SHIRA Reevaluation(s) Reevaluation #1: Upon re-evaluation, patient is still having some shortness of breath and left- sided mild chest pain. The chest pain has improved some. Consultations Consultation #1: hospitalist Dr. Macias consulted and agreed to admit the patient for a CHF exacerbation. Vital Signs Vital signs: Vital Signs - 8 hr 12/23/24 12:37 12/23/24 14:35 12/23/24 15:00 Temperature 97.0 F L Pulse Rate 51 L 49 L 48 L Respiratory Rate 18 22 19 Blood Pressure 189/81 H Pulse Oximetry 99 99 97 Oxygen Delivery Method Room Air 12/23/24 15:01 12/23/24 15:01 12/23/24 15:30 Temperature Pulse Rate 48 L 52 L Respiratory Rate 19 23 Blood Pressure 165/73 H Pulse Oximetry 99 97 Oxygen Delivery Method 12/23/24 15:31 12/23/24 15:31 12/23/24 16:00 Temperature Pulse Rate 52 L 48 L Respiratory Rate 24 19 Blood Pressure 140/61 Pulse Oximetry 98 99 Oxygen Delivery Method 12/23/24 16:01 12/23/24 16:01 12/23/24 16:30 Temperature Pulse Rate 48 L 47 L Respiratory Rate 21 18 Blood Pressure 163/76 H Pulse Oximetry 99 97 Oxygen Delivery Method 12/23/24 16:31 12/23/24 16:31 12/23/24 17:00 Temperature Pulse Rate 47 L 47 L Respiratory Rate 18 18 Blood Pressure 151/70 H Pulse Oximetry 97 96 Oxygen Delivery Method 12/23/24 17:01 12/23/24 17:01 12/23/24 17:30 Temperature Pulse Rate 47 L 51 L Respiratory Rate 17 24 Blood Pressure 178/77 H Pulse Oximetry 96 99 Oxygen Delivery Method MDM - Chest Pain Differential Diagnosis Differential diagnosis: Likely stable angina, atypical chest pain and other (congestive heart failure ) Lab Data 12/23/24 12:51 12/23/24 12:51 Labs: Lab Results 12/23/24 12/23/24 12/23/24 Range/Units 12:46 12:51 17:10 WBC 7.9 (4.5-11.0) X10^3/uL RBC 3.83 L (4.5-5.9) X10^6/uL Hgb 11.1 L (13.5-17.5) g/dL Hct 33.9 L (41-53) % MCV 88.6 (80-100) fL MCH 28.9 (26-34) PG MCHC 32.6 (30-36) % RDW 15.1 H (11.6-14.8) % Plt Count 198 (150-400) X10^3/uL Neut % (Auto) 79.2 H (50-75) % Lymph % (Auto) 11.7 L (25-40) % [place] % (Auto) 6.8 (3-14) % Eos % (Auto) 2.0 (2-4) % Baso % (Auto) 0.3 (0-2) % Neut # (Auto) 6300 (8875-3685) /uL Lymph # (Auto) 900 L (0606-7420) /uL [place] # (Auto) 500 (0-900) /uL Eos # (Auto) 200 (0-450) /uL Baso # (Auto) 0 (0-100) /uL PT 11.8 (9.4-12.5) SECONDS INR 1.0 (0.9-1.3) APTT 33 (25.1-36.5) SECONDS Sodium 140 (137-145) mmol/L Potassium 5.6 H (3.4-5.1) mmol/L Chloride 109 H (98-107) mmol/L Carbon Dioxide 25 (22-32) mmol/L BUN 35 H (9-20) mg/dL Creatinine 1.15 (0.66-1.25) mg/dL Estimated GFR > 60 (>60) mL/min BUN/Creatinine Ratio 30.4 H (6-22) Glucose 131 H (70-99) mg/dL POC Whole Bld Glucose 84 (70-99) mg/dL Calcium 9.4 (8.4-10.2) mg/dL Magnesium 1.8 (1.6-2.3) mg/dL Total Bilirubin 0.5 (0.2-1.3) mg/dL AST 22 (17-59) IU/L ALT 14 (<50) IU/L Alkaline Phosphatase 74 (38-126) U/L Total Creatine Kinase 77 (55-170) U/L Troponin I < 0.012 (0.01-0.034) ng/mL NT-Pro-B Natriuret Pep 1470 H (<125) pg/mL Total Protein 7.3 (6.3-8.2) g/dL Albumin 4.3 (3.5-5.0) g/dL Globulin 3.0 (1.7-4.1) g/dL Albumin/Globulin Ratio 1.4 (1.0-2.8) Lipase 21 L (23-300) U/L SARS-CoV-2 (PCR) Negative (Negative) Influenza A (RT-PCR) Flu a negative (NEGATIVE) Influenza B (RT-PCR) Flu b negative (NEGATIVE) RSV (PCR) Negative (Negative) Imaging Data Chest x-ray: Radiologist's Impression: Cardiomegaly and mild congestion. No definite focal infiltrate. No pleural effusion or pneumothorax. ECG Data Interpretation: EKG shows a leftward axis, sinus bradycardia with first-degree AV block. Incomplete left bundle branch block at 49 beats per minute. No ST T wave changes. PVC EKG showed the same incomplete left bundle branch block with no STT wave changes. MDM Narrative Medical decision making narrative: Due to patient having persistent symptoms after Lasix 40 mg IV, it was determined to admit the patient for a CHF exacerbation. Discharge Plan Departure Patient Disposition: Admitted As Inpatient Clinical Impression: Congestive heart failure Qualifiers: Heart failure type: unspecified Heart failure chronicity: unspecified Qualified Code(s): I50.9 - Heart failure, unspecified Admit Date/Time: 12/23/24 17:52 Admit Provider: Riley Macias
--- NOTE | 2024-12-23 18:08 | PM.HP.1 ---
History of Present Illness History of Present Illness Date Patient Seen: 12/23/24 Chief complaint: cough ,chest pain, wheezing Narrative: Chief complaint: Cough diminished appetite shortness for breath and chest pain History of present illness: 69-year-old with a history of myocardial infarction and coronary bypass 4 years ago for the last 5 days has been having productive cough malaise fatigue shortness for breath easy worsened by exertion. Patient does not have chest pain provoked by a exertion no radiation of pain no dizziness diaphoresis or any other anginal stigmata Findings in the emergency department significant for potassium 5.6 proBNP of 14 70 troponin however is negative and EKG is nonacute Past medical history significant for 4 vessel bypass surgery history of paroxysmal atrial fibrillation status post surgical Maze and left appendage clipping. His coronary bypass was complicated by cerebrovascular accident 4 years ago Review of systems: No vomiting or diarrhea No urinary symptoms No neurologic signs No weight loss or weight gain Physical exam: Elderly male no acute distress time my examination HEENT unremarkable Heart rate and rhythm regular Lungs clear Abdomen nondistended bowel sounds present Extremities no edema Neurologic nonfocal For objective laboratory and imaging data please see the bottom of the note Assessment and plan: Signs and symptoms suggestive of a lower respiratory infection chest x-ray is not impressive although there could be streaky infiltrates at the right base Ceftriaxone and azithromycin Monitor cardiac telemetry No further diuresis Chronic coronary disease status post bypass complicated by CVA Continue all core measures History of paroxysmal atrial fibrillation status post Maze procedure and appendiceal clipping Continue aspirin DVT prophylaxis: Subcutaneous heparin Code status: Full code blue 55 minutes were involved in management of this patient which involved [id number] interview examination of the patient review of objective laboratory and imaging data and discussion with colleagues and research of records [facility] Medical History (Updated 11/30/24 @ 10:49 by Karen Dowell [facility]) CAD (coronary artery disease) Type 2 diabetes mellitus Gastroesophageal reflux disease Anemia Infected sebaceous cyst Cervical radicular pain Gastroparesis due to DM 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 Diabetes mellitus Skin abscess History of CVA (cerebrovascular accident) Risk for falls BPH (benign prostatic hyperplasia) Depression Hypertension Hyperlipidemia Social History Smoking Status: Never smoker Meds Home Medications and Allergies Home Medications ?Medication ?Instructions ?Recorded ?Confirmed ?Type amiodarone 200 mg tablet 200 mg PO DAILY #90 tabs 04/17/24 10/31/24 Rx aspirin 81 mg tablet,delayed 81 mg PO DAILY 04/17/24 10/31/24 History release atorvastatin 80 mg tablet 80 mg PO DAILY #90 tabs 04/17/24 10/31/24 Rx finasteride 5 mg tablet 5 mg PO DAILY #90 tabs 04/17/24 10/31/24 Rx gabapentin 300 mg capsule 300 mg PO TID #180 caps 04/17/24 10/31/24 Rx metoprolol tartrate 25 mg tablet 12.5 mg (1/2 x 25 mg) PO BID #90 04/17/24 10/31/24 Rx tabs promethazine 25 mg tablet 25 mg PO Q6H PRN nausea and 04/17/24 10/31/24 Rx vomiting #30 tabs tamsulosin 0.4 mg capsule 0.4 mg PO DAILY #90 caps 04/17/24 10/31/24 Rx erythromycin 250 mg tablet 250 mg PO TID #360 tabs 05/01/24 10/31/24 Rx clotrimazole 1 % topical cream 1 applic topical BID 4 weeks #45 06/19/24 10/31/24 Rx grams furosemide 40 mg tablet 40 mg PO DAILY #90 tabs 07/23/24 10/31/24 Rx metoclopramide HCl 10 mg tablet 10 mg PO BID #180 tabs 07/23/24 10/31/24 Rx ferrous gluconate 324 mg (37.5 mg 324 mg PO DAILY #90 tabs 08/02/24 10/31/24 Rx iron) tablet fluoxetine 60 mg tablet 60 mg PO DAILY #90 tabs 09/12/24 10/31/24 Rx metformin 500 mg tablet 1,000 mg (2 x 500 mg) PO BIDWMEAL 09/26/24 10/31/24 Rx #360 tabs omeprazole 40 mg capsule,delayed 40 mg PO DAILY 4 weeks #90 caps 10/11/24 10/31/24 Rx release ondansetron HCl 4 mg tablet 8 mg (2 x 4 mg) PO Q12H #30 tabs 10/11/24 10/31/24 Rx ferrous gluconate 324 mg (38 mg 324 mg PO DAILY 10/31/24 10/31/24 History iron) tablet fluoxetine 40 mg capsule 40 mg PO DAILY 10/31/24 10/31/24 History lisinopril 10 mg tablet 10 mg PO DAILY 10/31/24 10/31/24 History insulin glargine 100 unit/mL (3 10 unit (0.1 mL) SUBCUT BID #15 mL 12/09/24 Rx mL) subcutaneous pen (Lantus Solostar U-100 Insulin) Allergies Allergy/AdvReac Type Severity Reaction Status Date / Time doxycycline AdvReac Intermediate Vomiting Verified 12/23/24 12:37 donezepil AdvReac Mild Vomiting Uncoded 12/23/24 12:37 Exam Vital Signs (past 8 hours): - 12/23/24 12:37 12/23/24 14:35 12/23/24 15:00 Temperature 97.0 F L Pulse Rate 51 L 49 L 48 L Respiratory Rate 18 22 19 Blood Pressure 189/81 H Pulse Oximetry 99 99 97 Oxygen Delivery Method Room Air 12/23/24 15:01 12/23/24 15:01 12/23/24 15:30 Temperature Pulse Rate 48 L 52 L Respiratory Rate 19 23 Blood Pressure 165/73 H Pulse Oximetry 99 97 Oxygen Delivery Method 12/23/24 15:31 12/23/24 15:31 12/23/24 16:00 Temperature Pulse Rate 52 L 48 L Respiratory Rate 24 19 Blood Pressure 140/61 Pulse Oximetry 98 99 Oxygen Delivery Method 12/23/24 16:01 12/23/24 16:01 12/23/24 16:30 Temperature Pulse Rate 48 L 47 L Respiratory Rate 21 18 Blood Pressure 163/76 H Pulse Oximetry 99 97 Oxygen Delivery Method 12/23/24 16:31 12/23/24 16:31 12/23/24 17:00 Temperature Pulse Rate 47 L 47 L Respiratory Rate 18 18 Blood Pressure 151/70 H Pulse Oximetry 97 96 Oxygen Delivery Method 12/23/24 17:01 12/23/24 17:01 12/23/24 17:30 Temperature Pulse Rate 47 L 51 L Respiratory Rate 17 24 Blood Pressure 178/77 H Pulse Oximetry 96 99 Oxygen Delivery Method Oxygen Delivery Method Room Air Objective Labs 12/23/24 12:51 12/23/24 12:51 Labs: Laboratory Results - last 24 hr 12/23/24 12/23/24 12/23/24 12:46 12:51 17:10 WBC 7.9 RBC 3.83 L Hgb 11.1 L Hct 33.9 L MCV 88.6 MCH 28.9 MCHC 32.6 RDW 15.1 H Plt Count 198 Neut % (Auto) 79.2 H Lymph % (Auto) 11.7 L [place] % (Auto) 6.8 Eos % (Auto) 2.0 Baso % (Auto) 0.3 Neut # (Auto) 6300 Lymph # (Auto) 900 L [place] # (Auto) 500 Eos # (Auto) 200 Baso # (Auto) 0 PT 11.8 INR 1.0 APTT 33 Sodium 140 Potassium 5.6 H Chloride 109 H Carbon Dioxide 25 BUN 35 H Creatinine 1.15 Estimated GFR > 60 BUN/Creatinine Ratio 30.4 H Glucose 131 H POC Whole Bld Glucose 84 Calcium 9.4 Magnesium 1.8 Total Bilirubin 0.5 AST 22 ALT 14 Alkaline Phosphatase 74 Total Creatine Kinase 77 Troponin I < 0.012 NT-Pro-B Natriuret Pep 1470 H Total Protein 7.3 Albumin 4.3 Globulin 3.0 Albumin/Globulin Ratio 1.4 Lipase 21 L SARS-CoV-2 (PCR) Negative Influenza A (RT-PCR) Flu a negative Influenza B (RT-PCR) Flu b negative RSV (PCR) Negative Assessment & Plan Time-Based Coding :: [TOTAL MINUTES] spent with patient and on the chart (including review of chart, obtaining history, exam, reviewing outside data, placing orders, documenting exam and treatment plan, and counseling patient) on [DATE].
[2024-12-23] MEDS: INSULIN GLARGINE 100 UNIT/ML 3ML PEN 10 UNIT SUBCUT (20:28)
[2024-12-23] MEDS: METOCLOPRAMIDE HCL 5 MG TABLET 10 MG PO (20:28)
[2024-12-23] MEDS: ACETAMINOPHEN 325 MG TABLET 650 MG PO (21:24)
[2024-12-24 02:15] VITALS: BP 111/58; PULSE 48; RESP 17; O2SAT 98
[2024-12-24] MEDS: PANTOPRAZOLE DR 40 MG TABLET PO (05:12)
[2024-12-24 05:53] LABS: Blood Urea Nitrogen 36 mg/dL (9-20); Calcium 9.3 mg/dL (8.4-10.2); Carbon Dioxide 27 mmol/L (22-32); Chloride 106 mmol/L (98-107); Estimated Glomerular Filt Rate > 60 mL/min (>60); Glucose 81 mg/dL (70-99); HEMOLYSIS < 15 (0-50); Potassium 4.4 mmol/L (3.4-5.1); Sodium 141 mmol/L (137-145)
[2024-12-24 08:10] VITALS: BP 129/68; PULSE 46; RESP 15; TEMP 36.6; O2SAT 99
[2024-12-24] MEDS: ATORVASTATIN 20 MG TABLET 80 MG PO (09:06)
[2024-12-24] MEDS: HEPARIN 5,000 UNIT/ML VIAL 5000 UNIT SUBCUT (09:06)
[2024-12-24] MEDS: AMIODARONE 200 MG TABLET PO (09:06)
[2024-12-24] MEDS: FINASTERIDE 5 MG TABLET PO (09:06)
[2024-12-24] MEDS: TAMSULOSIN 0.4 MG CAPSULE PO (09:06)
[2024-12-24 09:07] VITALS: BP 129/68; PULSE 51
[2024-12-24] MEDS: METOCLOPRAMIDE HCL 5 MG TABLET 10 MG PO (09:07)
[2024-12-24] MEDS: ASPIRIN EC 81 MG TABLET PO (09:07)
[2024-12-24] MEDS: DOCUSATE 100 MG CAPSULE PO (09:07)
[2024-12-24] MEDS: GABAPENTIN 300 MG CAPSULE PO (09:07)
[2024-12-24] MEDS: INSULIN GLARGINE 100 UNIT/ML 3ML PEN 10 UNIT SUBCUT (09:08)
--- NOTE | 2024-12-24 10:32 | P.DS_ITS ---
History of Present Illness History of Present Illness Date Patient Seen: 12/24/24 Chief complaint: cough ,chest pain, wheezing Narrative: Chief complaint: Cough diminished appetite shortness for breath and chest pain History of present illness: 69-year-old with a history of myocardial infarction and coronary bypass 4 years ago for the last 5 days has been having productive cough malaise fatigue shortness for breath easy worsened by exertion. Patient does not have chest pain provoked by a exertion no radiation of pain no dizziness diaphoresis or any other anginal stigmata Findings in the emergency department significant for potassium 5.6 proBNP of 14 70 troponin however is negative and EKG is nonacute Past medical history significant for 4 vessel bypass surgery history of paroxysmal atrial fibrillation status post surgical Maze and left appendage clipping. His coronary bypass was complicated by cerebrovascular accident 4 years ago Hospital course: Patient improved overnight ambulating with good exercise tolerance occasional nonproductive cough discharged home Review of systems: No vomiting or diarrhea No urinary symptoms No neurologic signs No weight loss or weight gain Physical exam: Elderly male no acute distress time my examination HEENT unremarkable Heart rate and rhythm regular Lungs clear Abdomen nondistended bowel sounds present Extremities no edema Neurologic nonfocal For objective laboratory and imaging data please see the bottom of the note Assessment and plan: Signs and symptoms suggestive of a lower respiratory infection chest x-ray is not impressive although there could be streaky infiltrates at the right base * Ceftriaxone and azithromycin * Monitor cardiac telemetry * No further diuresis Chronic coronary disease status post bypass complicated by CVA * Continue all core measures History of paroxysmal atrial fibrillation status post Maze procedure and appendiceal clipping * Continue aspirin DVT prophylaxis: * Subcutaneous heparin Code status: * Full code blue 35 minutes were involved in management of this patient which involved [id number] interview examination of the patient review of objective laboratory and imaging data and discussion with colleagues and research of records Discharge Providers Provider Date of admission: 12/23/24 17:52 Discharge Date: 12/24/24 Primary care physician: Karen Dowell [facility] Discharge provider: Riley Macias MD Exam Vital Signs (past 8 hours): - 12/24/24 08:10 12/24/24 09:07 12/24/24 09:25 Temperature 97.8 F Pulse Rate 46 L 51 L Respiratory Rate 15 Blood Pressure 129/68 129/68 Pulse Oximetry 99 Oxygen Delivery Method Room Air Oxygen Flow Rate 0 Oxygen Delivery Method Room Air Oxygen Flow Rate 0 Objective Labs 12/23/24 12:51 12/24/24 05:00 Labs: Laboratory Results - last 24 hr 12/23/24 12/23/24 12/23/24 12:46 12:51 17:10 WBC 7.9 RBC 3.83 L Hgb 11.1 L Hct 33.9 L MCV 88.6 MCH 28.9 MCHC 32.6 RDW 15.1 H Plt Count 198 Neut % (Auto) 79.2 H Lymph % (Auto) 11.7 L [place] % (Auto) 6.8 Eos % (Auto) 2.0 Baso % (Auto) 0.3 Neut # (Auto) 6300 Lymph # (Auto) 900 L [place] # (Auto) 500 Eos # (Auto) 200 Baso # (Auto) 0 PT 11.8 INR 1.0 APTT 33 Sodium 140 Potassium 5.6 H Chloride 109 H Carbon Dioxide 25 BUN 35 H Creatinine 1.15 Estimated GFR > 60 BUN/Creatinine Ratio 30.4 H Glucose 131 H POC Whole Bld Glucose 84 Calcium 9.4 Magnesium 1.8 Total Bilirubin 0.5 AST 22 ALT 14 Alkaline Phosphatase 74 Total Creatine Kinase 77 Troponin I < 0.012 NT-Pro-B Natriuret Pep 1470 H Total Protein 7.3 Albumin 4.3 Globulin 3.0 Albumin/Globulin Ratio 1.4 Lipase 21 L SARS-CoV-2 (PCR) Negative Influenza A (RT-PCR) Flu a negative Influenza B (RT-PCR) Flu b negative RSV (PCR) Negative 12/23/24 12/24/24 12/24/24 20:09 05:00 07:28 WBC RBC Hgb Hct MCV MCH MCHC RDW Plt Count Neut % (Auto) Lymph % (Auto) [place] % (Auto) Eos % (Auto) Baso % (Auto) Neut # (Auto) Lymph # (Auto) [place] # (Auto) Eos # (Auto) Baso # (Auto) PT INR APTT Sodium 141 Potassium 4.4 D Chloride 106 Carbon Dioxide 27 BUN 36 H Creatinine 1.28 H Estimated GFR > 60 BUN/Creatinine Ratio 28.1 H Glucose 81 POC Whole Bld Glucose 122 H 81 Calcium 9.3 Magnesium Total Bilirubin AST ALT Alkaline Phosphatase Total Creatine Kinase Troponin I NT-Pro-B Natriuret Pep Total Protein Albumin Globulin Albumin/Globulin Ratio Lipase SARS-CoV-2 (PCR) Influenza A (RT-PCR) Influenza B (RT-PCR) RSV (PCR) [facility] Medical History (Updated 12/23/24 @ 19:05 by Jacob Duckworth MD) CAD (coronary artery disease) Type 2 diabetes mellitus Gastroesophageal reflux disease Anemia Infected sebaceous cyst Cervical radicular pain Gastroparesis due to DM 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 Diabetes mellitus Skin abscess History of CVA (cerebrovascular accident) Risk for falls BPH (benign prostatic hyperplasia) Depression Hypertension Hyperlipidemia Social History household members: family Smoking Status: Never smoker alcohol intake: never Discharge Plan Discharge Plan Patient Disposition: Home Discharge orders & Medications Prescriptions: New cefdinir 300 mg capsule 300 mg PO BID Qty: 10 0RF Continued metoclopramide HCl 10 mg tablet 10 mg PO BID Qty: 180 0RF furosemide 40 mg tablet 40 mg PO DAILY Qty: 90 3RF ferrous gluconate 324 mg (37.5 mg iron) tablet 324 mg PO DAILY Qty: 90 0RF insulin glargine [Lantus Solostar U-100 Insulin] 100 unit/mL (3 mL) insulin pen 10 unit SUBCUT BID Qty: 15 2RF aspirin 81 mg tablet,delayed release (DR/EC) 81 mg PO DAILY promethazine 25 mg tablet 25 mg PO Q6H PRN (Reason: nausea and vomiting) Qty: 30 3RF finasteride 5 mg tablet 5 mg PO DAILY Qty: 90 3RF atorvastatin 80 mg tablet 80 mg PO DAILY Qty: 90 3RF metoprolol tartrate 25 mg tablet 12.5 mg PO BID Qty: 90 3RF amiodarone 200 mg tablet 200 mg PO DAILY Qty: 90 3RF gabapentin 300 mg capsule 300 mg PO TID Qty: 180 3RF tamsulosin 0.4 mg capsule 0.4 mg PO DAILY Qty: 90 3RF metformin 500 mg tablet 1,000 mg PO BIDWMEAL Qty: 360 1RF Rx Instructions: Take 1000 in the AM and 500mg in the PM fluoxetine 40 mg capsule 40 mg PO DAILY lisinopril 10 mg tablet 10 mg PO DAILY ondansetron HCl 4 mg tablet 8 mg PO Q12H PRN (Reason: nausea and vomiting) Discontinued ferrous gluconate 324 mg (38 mg iron) tablet 324 mg PO DAILY Follow up/Referrals: Karen Dowell, NURSING SERVICES MANAGER-BC [Primary Care Provider, Family Practice] Visit Report/Discharge Packet Stand Alone Forms: Patient Portal/API, Stroke Signs & Symptoms Discharge Data Primary Care Provider: Karen Dowell [facility]TE Deep Vein Thrombosis/Pulmonary Embolism Present on Admission: No
[2024-12-24] MEDS: FUROSEMIDE 40 MG/4 ML VIAL IV (10:50)
[2024-12-24 12:00] VITALS: BP 124/57; PULSE 69; RESP 16; TEMP 36.6; O2SAT 95
--- NOTE | 2024-12-24 15:03 | CM.DANOTE ---
DCP Assessment note pt is a 69yo M admitted with CHF/SOB PCP Delmer Payer [place] Medicare and self pay VALIDATION TECHNICIAN reviewed EMR per provider cleared to dc today. VALIDATION TECHNICIAN met with pt in room. lives indep in house in [place]. lives with sister/other family. no DME. no hx of HH or SNF. sister/other family transports him. does not drive. denies any DCP/CM needs at this time (except for the winning lottery numbers). sister will transport him home after she finishes taking their mom to a doctors appt. VALIDATION TECHNICIAN messaged TCM team with updates P: dc today home with family support and OP f/u. CM team will continue to follow as needed for DCP coordination MAGED Faustin Discharge Planning/Care Management CM Discharge Assessment Start: 12/23/24 18:24 Freq: Status: Discharge Protocol: Document 12/24/24 15:02 (Rec: 12/24/24 15:03 [id number]) Discharge Planning Assessment Assigned Discharge MAGED Johnson Story Editor DPOA/Assigned Kierstensister Designee Name Contact Information [phone] Advance Directives? No History Provided By Patient Prior Living House Arrangements Household Members family Type of Relies on Others transporation used prior to admit Independent with ADL Yes 's Is patient alert and Yes oriented? Discharge Plan Home Referrals Initiated None needed Review Status In Process Please Provide Date 12/24/24 Initial DC Assessment Was Performed Next Review Type Continued Stay Review
== END 2024-12-24 14:56 | disposition home or self-care (01) ==
LOC: ED 15:18 → AC 18:48
PROVIDERS: Admitting Provider Internal Medicine; Emergency Provider Family Medicine; PCP Nurse Practitioner Family; Referring Provider Family Medicine; Visit Provider Internal Medicine
DX: R07.9 Chest pain, unspecified (principal); R06.2 Wheezing; R05.9 Cough, unspecified; I11.0 Hypertensive heart disease with heart failure; I50.9 Heart failure, unspecified; I25.10 Atherosclerotic heart disease of native coronary artery without angina pectoris; E11.9 Type 2 diabetes mellitus without complications; Z86.73 Personal history of transient ischemic attack (TIA), and cerebral infarction without residual deficits; Z95.1 Presence of aortocoronary bypass graft; I25.2 Old myocardial infarction; Z79.84 Long term (current) use of oral hypoglycemic drugs; Z79.4 Long term (current) use of insulin
CPT/HCPCS: 36415; 71045; 80048; 80053; 82550; 82962; 83690; 83735; 83880; 84484; 85025; 85610; 85730; 87637; 93005; 96372; 96374; 96376; 99284; G0378; J1644; J1938

== ENCOUNTER 2024-12-28 12:47 | Emergency (ER) | payer MEDICARE, SELFPAY ==
[2024-12-23 18:24] VITALS: BMI 25.8
[2024-12-28] VITALS (15 sets, daily range): BP systolic 150–195; BP diastolic 68–84; PULSE 48–55; RESP 18; TEMP 36.6; O2SAT 86–100
--- NOTE | 2024-12-28 13:32 | ED_ITS ---
HPI - Recheck/Abnormal Lab/Rx General Chief Complaint: Recheck/Abnormal Lab/Rx Stated Complaint: has chf blood pressure up, gained 8 pounds Time Seen by Provider: 12/28/24 13:20 Source: patient and family Mode of arrival: Ambulatory History of Present Illness HPI narrative: 69-year-old male with a history of 4 vessel coronary artery bypass surgery who was recently admitted on December 23, 2024 for a CHF exacerbation presents with left-sided chest pain and some shortness of breath but not as bad as last time. Patient was discharged with Lasix 40 mg p.o. daily. Related Data Home Medications ?Medication ?Instructions ?Recorded ?Confirmed aspirin 81 mg tablet,delayed 81 mg PO DAILY 04/17/24 0 12/25/24 release fluoxetine 40 mg capsule 40 mg PO DAILY 10/31/2411/28 lisinopril 10 mg tablet 10 mg PO DAILY 10/31/2411/28 ondansetron HCl 4 mg tablet 8 mg PO Q12H PRN nausea an d 12/23/24 12/25/24 vomiting Previous Rx's ?Medication ?Instructions ?Recorded amiodarone 200 mg tablet 200 mg PO DAILY #90 tabs atorvastatin 80 mg tablet 80 mg PO DAILY #90 tabs 03/30 finasteride 5 mg tablet 5 mg PO DAILY #90 tabs 04/17 gabapentin 300 mg capsule 300 mg PO TID #180 caps 03/30 metoprolol tartrate 25 mg tablet 12.5 mg (1/2 x 25 mg) PO BID #90 04/17/24 tabs promethazine 25 mg tablet 25 mg PO Q6H PRN nausea and 04/17/24 vomiting #30 tabs tamsulosin 0.4 mg capsule 0.4 mg PO DAILY #90 caps furosemide 40 mg tablet 40 mg PO DAILY #90 tabs 06/30 10/20 metoclopramide HCl 10 mg tablet 10 mg PO BID #180 tabs 07/23/24 metformin 500 mg tablet 1,000 mg (2 x 500 mg) PO BID WMEAL 09/26/24 #360 tabs insulin glargine 100 unit/mL (3 10 unit (0.1 mL) SUBCU T BID #15 mL 12/09/24 mL) subcutaneous pen (Lantus Solostar U-100 Insulin) cefdinir 300 mg capsule 300 mg PO BID #10 caps 12/24 furosemide 40 mg tablet 40 mg PO DAILY #20 tabs 07/23 Allergies Allergy/AdvReac Type Severity Reaction Status Date / Time doxycycline AdvReac Intermediate Vomiting Verified 12/28/24 12:59 donezepil AdvReac Mild Vomiting Uncoded 12/28/24 12:59 Patient History Medical History (Updated 12/28/24 @ 17:04 by Jacob Duckworth MD) CAD (coronary artery disease) Type 2 diabetes mellitus Gastroesophageal reflux disease Anemia Infected sebaceous cyst Cervical radicular pain Gastroparesis due to DM 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 Diabetes mellitus Skin abscess History of CVA (cerebrovascular accident) Risk for falls BPH (benign prostatic hyperplasia) Depression Hypertension Hyperlipidemia Social History household members: family Smoking Status: Never smoker alcohol intake: never Smoking Status: Never smoker Exam Initial Vital Signs Initial Vital Signs: Vital Signs Temperature 98 F 12/28/24 12:59 Pulse Rate 55 L 12/28/24 12:59 Respiratory Rate 18 12/28/24 12:59 Blood Pressure 195/84 H 12/28/24 12:59 Pulse Oximetry 99 12/28/24 12:59 Oxygen Delivery Method Room Air 12/28/24 12:59 Course Course Course Narrative: Patient most likely having another CHF exacerbation and so we will give another 40 mg IV Lasix now. Orders Ordered: ED Orders 12/28/24 15:06 XR chest 2V Stat 12/28/24 15:20 CBC Auto Diff [Complete Blood Count AUTO DIFF] Stat CMP [Comprehensive Metabolic Panel] Stat NT-proBNP (BNP-Adult 18+) Stat Troponin I Stat Discontinued Medications Furosemide (Furosemide 40 Mg/4 Ml Vial) 40 mg IV NOW ONE Stop: 12/28/24 15:07 Last Admin: 12/28/24 15:37 Dose: 40 mg Documented By: CTS Reevaluation(s) Reevaluation #1: Upon re-evaluation, patient still has some slight chest pain and shortness of breath. Reevaluation #2: After urinating 1 L, patient's shortness of breath and chest pain have improved. Patient is eager to be discharged. Time: 17:01 Vital Signs Vital signs: Vital Signs - 8 hr 12/28/24 12:59 12/28/24 14:01 12/28/24 14:02 Temperature 98 F Pulse Rate 55 L 48 L Respiratory Rate 18 Blood Pressure 195/84 H 150/70 H Pulse Oximetry 99 97 Oxygen Delivery Method Room Air 12/28/24 14:02 12/28/24 14:30 12/28/24 14:31 Temperature Pulse Rate 48 L 49 L Respiratory Rate Blood Pressure 150/69 H Pulse Oximetry 98 98 Oxygen Delivery Method 12/28/24 14:31 12/28/24 15:00 12/28/24 15:01 Temperature Pulse Rate 49 L 51 L 50 L Respiratory Rate Blood Pressure Pulse Oximetry 99 98 99 Oxygen Delivery Method 12/28/24 15:01 12/28/24 15:30 12/28/24 16:00 Temperature Pulse Rate 49 L 51 L Respiratory Rate Blood Pressure 161/71 H Pulse Oximetry 98 86 L Oxygen Delivery Method 12/28/24 16:03 12/28/24 16:03 12/28/24 16:30 Temperature Pulse Rate 51 L 53 L Respiratory Rate Blood Pressure 182/73 H Pulse Oximetry 98 90 L Oxygen Delivery Method 12/28/24 16:31 12/28/24 16:31 Temperature Pulse Rate 53 L Respiratory Rate Blood Pressure 150/68 H Pulse Oximetry 95 Oxygen Delivery Method MDM - Recheck/Abnormal Lab/Rx Differential Diagnosis Differential diagnosis: Likely other (chf exacerbation vs copd vs pneumonia vs acute mi ) Lab Data 12/28/24 15:20 12/28/24 15:20 Labs: Lab Results 12/28/24 Range/Units 15:20 WBC 7.7 (4.5-11.0) X10^3/uL RBC 3.86 L (4.5-5.9) X10^6/uL Hgb 11.2 L (13.5-17.5) g/dL Hct 34.2 L (41-53) % MCV 88.6 (80-100) fL MCH 29.0 (26-34) PG MCHC 32.7 (30-36) % RDW 14.9 H (11.6-14.8) % Plt Count 194 (150-400) X10^3/uL Neut % (Auto) 80.6 H (50-75) % Lymph % (Auto) 12.2 L (25-40) % [place] % (Auto) 5.4 (3-14) % Eos % (Auto) 1.3 L (2-4) % Baso % (Auto) 0.5 (0-2) % Neut # (Auto) 6200 (2243-3095) /uL Lymph # (Auto) 900 L (6700-9752) /uL [place] # (Auto) 400 (0-900) /uL Eos # (Auto) 100 (0-450) /uL Baso # (Auto) 0 (0-100) /uL Sodium 141 (137-145) mmol/L Potassium 5.9 H D (3.4-5.1) mmol/L Chloride 110 H (98-107) mmol/L Carbon Dioxide 25 (22-32) mmol/L BUN 43 H (9-20) mg/dL Creatinine 1.21 (0.66-1.25) mg/dL Estimated GFR > 60 (>60) mL/min BUN/Creatinine Ratio 35.5 H (6-22) Glucose 124 H (70-99) mg/dL Calcium 9.3 (8.4-10.2) mg/dL Total Bilirubin 0.3 (0.2-1.3) mg/dL AST 20 (17-59) IU/L ALT 13 (<50) IU/L Alkaline Phosphatase 76 (38-126) U/L Troponin I < 0.012 (0.01-0.034) ng/mL NT-Pro-B Natriuret Pep 1050 H (<125) pg/mL Total Protein 7.2 (6.3-8.2) g/dL Albumin 4.4 (3.5-5.0) g/dL Globulin 2.8 (1.7-4.1) g/dL Albumin/Globulin Ratio 1.6 (1.0-2.8) ECG Data Interpretation: EKG shows a sinus bradycardia with first-degree AV block with an incomplete left bundle branch block. Rate is 40 beats per minute. No OK interval changes or STT wave changes. Previous EKG was the same and showed a sinus bradycardia with first-degree AV block with an incomplete left bundle branch block. [facility] Narrative Medical decision making narrative: 69-year-old male with an obvious CHF exacerbation who was feeling better after 40 mg IV Lasix and diuresing 1 L. advised to continue with the 40 mg p.o. Lasix and can even take a twice a day dose if needed. Continue to follow up with Cardiology as planned. Discharge Plan Departure Patient Disposition: Home Clinical Impression: Congestive heart failure Qualifiers: Heart failure type: unspecified Heart failure chronicity: unspecified Qualified Code(s): I50.9 - Heart failure, unspecified Instructions: DI for Heart Failure Activity Restrictions/Additional Instructions: Continue to take the Lasix 40 mg p.o. daily and can take even twice a day dose if needed if having more swelling or shortness of breath. Follow up with Cardiology as planned. Recheck potassium level in 1 week with PCP. Prescriptions: New furosemide 40 mg tablet 40 mg PO DAILY Qty: 20 0RF No Action metoclopramide HCl 10 mg tablet 10 mg PO BID Qty: 180 0RF furosemide 40 mg tablet 40 mg PO DAILY Qty: 90 3RF insulin glargine [Lantus Solostar U-100 Insulin] 100 unit/mL (3 mL) insulin pen 10 unit SUBCUT BID Qty: 15 2RF aspirin 81 mg tablet,delayed release (DR/EC) 81 mg PO DAILY promethazine 25 mg tablet 25 mg PO Q6H PRN (Reason: nausea and vomiting) Qty: 30 3RF finasteride 5 mg tablet 5 mg PO DAILY Qty: 90 3RF atorvastatin 80 mg tablet 80 mg PO DAILY Qty: 90 3RF metoprolol tartrate 25 mg tablet 12.5 mg PO BID Qty: 90 3RF amiodarone 200 mg tablet 200 mg PO DAILY Qty: 90 3RF gabapentin 300 mg capsule 300 mg PO TID Qty: 180 3RF tamsulosin 0.4 mg capsule 0.4 mg PO DAILY Qty: 90 3RF metformin 500 mg tablet 1,000 mg PO BIDWMEAL Qty: 360 1RF Rx Instructions: Take 1000 in the AM and 500mg in the PM fluoxetine 40 mg capsule 40 mg PO DAILY lisinopril 10 mg tablet 10 mg PO DAILY ondansetron HCl 4 mg tablet 8 mg PO Q12H PRN (Reason: nausea and vomiting) cefdinir 300 mg capsule 300 mg PO BID Qty: 10 0RF Referrals: Karen Dowell, PELLETISING EXTRUDER OPERATOR-BC [Primary Care Provider, Family Practice] Stand Alone Forms: Patient Portal/API
--- NOTE | 2024-12-28 13:45 | EKG_ITS ---
[address] [address] Test Date: 2024-12-28 Pat Name: Tone Cason Department: Room: Gender: Male Wall Taper: DONG : 1955 Requested By: Order Number: [id number] Reading MD: Mayco Capone Measurements Intervals [place] Rate: 48 P: 78 RI: 328 QRS: -18 QRSD: 116 T: 68 QT: 456 QTc: 407 Interpretive Statements Sinus bradycardia with 1st degree AV block Incomplete left bundle branch block Electronically Signed On 01-04-2025 7:16:47 PDT by Mayco Capone
--- NOTE | 2024-12-28 15:06 | DI.RAD.S_ITS ---
PROCEDURE: XR CHEST 2V INDICATIONS: Short of breath TECHNIQUE: 2 views of the chest were acquired. COMPARISON: [facility], CR, XR CHEST 1V, 12/23/2024, 12:44. FINDINGS: Surgical changes and devices: Lower cervical spine hardware is seen. Sternotomy changes are seen. There is a cardiac closure device seen. Mediastinal sutures and mediastinal clips are seen. Lungs and pleura: Lungs are clear. No pleural effusions or pneumothorax. Mediastinum: The cardiac contours are within normal limits. The aorta demonstrates calcification and tortuosity. Bones and chest wall: No suspicious bony abnormalities. Age-appropriate bony degenerative changes are seen. Soft tissues appear unremarkable. IMPRESSION: No karthik acute abnormality is seen. Postoperative and degenerative changes are seen. Dictated by: Luis Rosa M.D. on 12/28/2024 at 14:29 Approved by: Luis Rosa M.D. on 12/28/2024 at 14:30
[2024-12-28 15:30] LABS: Add Manual Diff / Slide Review NO; Hematocrit 34.2 % (41-53); Hemoglobin 11.2 g/dL (13.5-17.5); Lymphocytes Absolute Auto 900 /uL (1100-4500); Mean Corpuscular HGB Conc 32.7 % (30-36); Mean Corpuscular Hemoglobin 29.0 PG (26-34); Mean Corpuscular Volume 88.6 fL (80-100); Platelet Count 194 X10^3/uL (150-400)
[2024-12-28] MEDS: FUROSEMIDE 40 MG/4 ML VIAL IV (15:37)
[2024-12-28 15:41] LABS: Alanine Aminotransferase 13 IU/L (<50); Albumin 4.4 g/dL (3.5-5.0); Albumin Globulin Ratio 1.6 (1.0-2.8); Alkaline Phosphatase 76 U/L (38-126); Blood Urea Nitrogen 43 mg/dL (9-20); Calcium 9.3 mg/dL (8.4-10.2); Carbon Dioxide 25 mmol/L (22-32); Chloride 110 mmol/L (98-107); Estimated Glomerular Filt Rate > 60 mL/min (>60); Globulin 2.8 g/dL (1.7-4.1); Glucose 124 mg/dL (70-99); HEMOLYSIS < 15 (0-50); Sodium 141 mmol/L (137-145); Total Protein 7.2 g/dL (6.3-8.2)
[2024-12-28 15:47] LABS: Potassium 5.9 mmol/L (3.4-5.1)
[2024-12-28 15:53] LABS: Troponin I < 0.012 ng/mL (0.01-0.034)
[2024-12-28 16:04] LABS: NT-proBNP (BNP-Adult 18+) 1050 pg/mL (<125)
== END 2024-12-28 17:14 | disposition home or self-care (01) ==
PROVIDERS: Emergency Provider Family Medicine; PCP Nurse Practitioner Family
DX: I50.9 Heart failure, unspecified (principal); R06.02 Shortness of breath; Z79.01 Long term (current) use of anticoagulants
CPT/HCPCS: 36415; 71046; 80053; 83880; 84484; 85025; 93005; 96374; 99284; J1938

== ENCOUNTER → 2025-01-08 07:08 | Outpatient (CLI) | payer MEDICARE, SELFPAY ==
[2024-12-23 18:24] VITALS: BMI 25.8
[2025-01-08 08:34] LABS: Blood Urea Nitrogen 39 mg/dL (9-20); Calcium 9.6 mg/dL (8.4-10.2); Carbon Dioxide 24 mmol/L (22-32); Chloride 105 mmol/L (98-107); Estimated Glomerular Filt Rate 49 mL/min (>60); Glucose 87 mg/dL (70-99); HEMOLYSIS < 15 (0-50); Potassium 4.4 mmol/L (3.4-5.1); Sodium 141 mmol/L (137-145)
== END ==
PROVIDERS: PCP Nurse Practitioner Family; Referring Provider Nurse Practitioner Family; Visit Provider Nurse Practitioner Family
DX: E87.5 Hyperkalemia (principal)
CPT/HCPCS: 36415; 80048

== ENCOUNTER → 2025-02-07 13:55 | Outpatient (CLI) | payer MEDICARE, SELFPAY ==
[2024-12-23 18:24] VITALS: BMI 25.8
--- NOTE | 2025-02-07 14:58 | DIAB.FU ---
Follow-up Diabetes Education Assessment Name: Tone Cason Date: 02/07/25 Time: 2-225p Dx: Type II Diabetes Tone presents for DM visit virtually using [facility], accompanied by his sister and mother. Dx in 1998. PMH of stroke. Endorses improved reflux/emesis since last visit. Has endo referral, but no appt yet. Some high CHO intake resulting in BG >250mg/dl. Treating lows with ice cream. Starts treating lows at 90mg/dl. Has alerts set for 90 and 160mg/dl. Prefers to keep them there. Has been doing a smoothie q other day. Sometimes only eating 1x per day due to elevations. Anthropometrics: Ht: 5'10 Wt: 174# 01/2025 173# 12/2024 167# 10/2024 176# 07/2024 Physical Activity: Not discussed Self-Monitoring Blood Glucose: In range time at goal, though excessive time >250gm/dl likely r/t larger portions of CHO. TIR: 3% very high 18% high 78% in range 1% low 0% very low avmg/dl GMI: 6.9% std dev: 46 mg/dl variation: 30.9% Last TIR: 1% very high 21% high 78% in range 0% low <1% very low avmg/dl GMI: 6.9% std dev: 42 mg/dl variation: 28% Diabetes Medications: 500mg Metformin BID 10u Glargine AM--- 5-8u SSI -- 5-7u--- 2-3u correction Pertinent Labs: HgA12c: 6.7% 03/2024 6.1% 07/2024 5.7% 11/2024 6.3% 12/2024 Past Medical History: (Last Updated 10/31/24 @ 09:57 by Karen Dowell COMMERCIAL ADMINISTRATOR-)Anemia BPH (benign prostatic hyperplasia) Cervical radicular pain Depression Diabetes mellitus Gastroesophageal reflux disease Gastroparesis due to DM History of CVA (cerebrovascular accident) Hyperlipidemia Hypertension Infected sebaceous cyst 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 Provided appropriate educational handouts. Discussed the following topics: Encouraged calling endo for appt Review of rule of 15 for tx of lows s/s of lows and rec for target ranges (lows as <70 and elevations as >180) Carb portion recs BG trends and goals Created SMART goals for patient self-care and success. Goals: Try blended soups/smoothies with protein- met Use Rule of 15 for lows <70mg/dl- new Call endo for appt- new Keep CHo to 1c at meals- new Follow-up: NISH LYNNE follow-up in 4-5 weeks Alma Hernandez RDN, MAGED Certified Diabetes Care and Domestic Technician P: [phone] Thank you for this referral
== END ==
LOC: DIET 13:56
PROVIDERS: Family Provider Nurse Practitioner Family; PCP Nurse Practitioner Family; Referring Provider Nurse Practitioner Family
DX: E11.9 Type 2 diabetes mellitus without complications (principal); Z71.3 Dietary counseling and surveillance; Z79.84 Long term (current) use of oral hypoglycemic drugs; Z79.4 Long term (current) use of insulin
CPT/HCPCS: G0108

== ENCOUNTER → 2025-03-14 10:09 | Outpatient (CLI) | payer MEDICARE, MEDICAID, SELFPAY ==
[2024-12-23 18:24] VITALS: BMI 25.8
--- NOTE | 2025-03-14 10:41 | DIAB.MNTFU ---
Follow-up Diabetes Medical Nutrition Therapy Assessment Name: Tone Cason Date: 03/14/25 Time: [id number] Dx: Type II Diabetes Tone presents for DM visit virtually using [facility], accompanied by his sister. Dx in 1998. PMH of stroke. Endorses improved reflux/emesis since last visit. No longer having emesis. Started an OTC mucous relief med per report. Has endo referral and appt in August 2025. Some high CHO intake resulting in BG >250mg/dl. States this is mostly r/t smoothie, though recently added insulin to cover. Also reports high intake with two sandwiches, no insulin coverage. Eating veggies inconsistently per sister's report. Endorses UTD eye with appt in Mar Reports not checking feet regularly, they are dry per report. Anthropometrics: Ht: 5'10 Wt: 174# 01/2025 173# 12/2024 167# 10/2024 176# 07/2024 Physical Activity: Not discussed Self-Monitoring Blood Glucose: In range time at goal, though excessive time >250gm/dl likely r/t larger portions of CHO. Reduced lows since last visit. TIR: 6% very high 20% high 74% in range 0% low 0% very low avmg/dl GMI: 7.1% std dev: 49 mg/dl variation: 30.8% Last TIR: 3% very high 18% high 78% in range 1% low 0% very low avmg/dl GMI: 6.9% std dev: 46 mg/dl variation: 30.9% Diabetes Medications: 500mg Metformin BID 10u Glargine AM--- 5-8u--- 8u SSI -- 5-7u--- 2-3u correction Pertinent Labs: HgA12c: 6.7% 03/2024 6.1% 07/2024 5.7% 11/2024 6.3% 12/2024 Past Medical History: (Last Updated 10/31/24 @ 09:57 by Karen Dowell [facility])Anemia BPH (benign prostatic hyperplasia) Cervical radicular pain Depression Diabetes mellitus Gastroesophageal reflux disease Gastroparesis due to DM History of CVA (cerebrovascular accident) Hyperlipidemia Hypertension Infected sebaceous cyst 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 Dx in 1998. PMH of stroke. Reports his frequent reflux/emesis has returned. Endorses emesis with most times he eats. This RD wonders if this is r/t his gastroparesis dx. Endorses nectar thick liquids while recent hospitalization for CHF. Also describes what sounds like a barium swallow evaluation. Has GI and [employer] referrals per PCP notes. Recent hgA1c of 5.7%. PCP has rec'd reduced Metformin and d/c of ac insulin. Currently pt has reduced Metformin, reduced basal insulin to 5 or 8u HS, and has continued bolus insulin with BG of 250mg/dl or more (2-3u correction). One low BG documented in CGM that seems r/t false lows with new sensor placement, though pt did treat with ice cream. States this corrects lows in 20 mins. Has not changed meal/snack timing to small/frequent. Last Diet Recall: 5p: 3-4 frozen burritos or 4-5 mini corn dogs OR 4 chicken nuggets sn: nothing or ice cream water, crystal light, tea Anthropometrics: Ht: 5'10 Wt: 173# 12/2024 167# 10/2024 176# 07/2024 Physical Activity: Not discussed Self-Monitoring Blood Glucose: CGM use with in range time at goal with reduced time >250 since last visit. Reduced time in range though still meeting 70%+ time in range. TIR: 1% very high 21% high 78% in range 0% low <1% very low avmg/dl GMI: 6.9% std dev: 42 mg/dl variation: 28% Last TIR: 3% very high 12% high 84% in range 1% low <1% very low avmg/dl GMI: 6.7% std dev: 46 mg/dl variation: 32.9% Diabetes Medications: 500mg Metformin BID 10u Glargine AM--- 5-8u SSI -- 5-7u--- 2-3u correction Pertinent Labs: HgA12c: 6.7% 03/2024 6.1% 07/2024 5.7% 11/2024 Past Medical History: (Last Updated 10/31/24 @ 09:57 by Karen Dowell, [facility]-)Anemia BPH (benign prostatic hyperplasia) Cervical radicular pain Depression Diabetes mellitus Gastroesophageal reflux disease Gastroparesis due to DM History of CVA (cerebrovascular accident) Hyperlipidemia Hypertension Infected sebaceous cyst 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 Provided appropriate educational handouts. Discussed the following topics: Carb portions and insulin coverage prandial recs BG trends and goals Reduced complication risk Created SMART goals for patient self-care and success. Goals: Use Rule of 15 for lows <70mg/dl- continue Call endo for appt- met Keep CHo to 1c at meals- continue Try smoothie with half juice and added water- new Limit to one sandwich per sitting- new If 2 sandwiches, add prandial insulin- new Lotaion dry feet- new Veggies 1x per day min- new Follow-up: NISH LYNNE follow-up in May per pt req. PCP in Mar. Endo in August. Alma Hernandez, NISH, MAGED Certified Diabetes Care and Telephone Sterilizer P: [phone] Thank you for this referral
== END ==
PROVIDERS: PCP Nurse Practitioner Family; Referring Provider Nurse Practitioner Family
DX: E11.9 Type 2 diabetes mellitus without complications (principal); Z86.73 Personal history of transient ischemic attack (TIA), and cerebral infarction without residual deficits; Z71.3 Dietary counseling and surveillance; Z79.4 Long term (current) use of insulin; Z79.84 Long term (current) use of oral hypoglycemic drugs
CPT/HCPCS: 97803

== ENCOUNTER → 2025-04-22 10:37 | Outpatient (CLI) | payer MEDICAID, MEDICARE, SELFPAY ==
[2024-12-23 18:24] VITALS: BMI 25.8
--- NOTE | 2025-04-22 15:45 | ST.SWALLOW ---
Visit Care Team Role Provider Type ZAHRAA Reinoso Attending Provider Advanced P D Driver Primary Care Provider Referring Provider Specialty: Family Practice Address: [address] [place] [address], [id number] Phone: Fax: Email: [email or web address] Modified Barium Swallow Study CAP INSPECTOR Modified Barium Swallow Study Start: 04/22/25 13:20 Freq: Status: Active Protocol: Document 04/22/25 13:21 LNK (Rec: 04/22/25 15:45 LNK Desktop) Modified Barium Swallow Study Total Time Visit Start Time 11:00 Visit Stop Time 12:00 Total Visit Minutes 60 Referral Referring Physician ZAHRAA Dunaway Reason for Referral dysphagia Setting Setting Outpatient Care Patient Information Identification Type Name,Date of Patient History Pt seen for a Modified Barium Swallow Study due to frequent coughing/choking when eating/drinking. Pt is currently receiving swallowing therapy as an outpatient at . MBSS was recommended by CAP INSPECTOR secondary to ongoing coughing/choking. 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 Pt reported that he coughs/chokes on liquids foods (i.e., mixed textures). Pt has a PMH that includes GERD, gastroparesis. IDDM, [place], memory deficit, CHF and surgical repair of his cervical spine. Pt's voice is hoarse and has been hoarse since his CVA. Pt has been referred to ENT in [place] re:vocal hoarseness. Subjective Pt was seated in the flouroscopy chair with directions Observations and procedures explained for him. He indicated he understood and agreed to proceed. Patient Positioning Position View Lat-A/P Imaging Lateral View Textures Administered Trials Presented Thin Liquid via Spoon (IDDSI 0),Thin Liquid via Cup ( IDDSI 0),Mildly Thick Liquid via Spoon (IDDSI 2),Mildly Thick Liquid via Cup (IDDSI 2),Moderately Thick Liquid via Spoon (IDDSI 3),Extremely Thick Liquid via Spoon ( IDDSI 4),Soft & Bite-sized (IDDSI,Regular (IDDSI 7) Barium Tablet Yes The IDDSI Framework Protocol: IDDSI.1 Oral Impairment Source: The Modified Barium Swallow Impairment Profile (MBSImP??) Lip Closure Interlabial escape; no progression to anterior lip Tongue Control Cohesive bolus between tongue to palatal seal During Bolus Hold Bolus Preparation/ Timely & efficient chewing & mashing Mastication Bolus Transport/ Delayed initiation of tongue motion Lingual Motion Oral Residue Trace residue lining oral structures Location Tongue Initiation of Bolus head in valleculae Pharyngeal Swallow Additional Oral *OME was observed to be WFL. Impairment *DKS assessment indicated slowed response time for /ah/ Observations and reduced speed for (pu-tu-ku) imitation x3. Spontaneous speech did not appear to be slowed or distorted. *Dentition natural with one molar upper/lower in good hygiene *Mastication observed with anterior munching pattern secondary to few molars present molars *Delayed initiation of tongue movement *Adequate bolus formation, control and AP transition. Pharyngeal Impairment Source: The Modified Barium Swallow Impairment Profile (MBSImP??) Soft Palate No bolus between soft palate & pharyngeal wall Elevation Laryngeal Elevation Part.sup.move.thyroid cart/part.approx.arytenoids to epiglot.petiole Anterior Hyoid Partial anterior movement Excursion Epiglottic Movement No inversion Laryngeal Vestibular Incomplete; narrow column air/contrast in laryngeal Closure vestibule Pharyngeal Stripping Absent Wave Pharyngoesophageal Complete distention & complete duration; no obstruction Segment Opening of flow Tongue Base Wide column of contrast/air betwn tongue base & post. Retraction pharyngeal wall Pharyngeal Residue Collection of residue within/on pharyngeal structures Location Diffuse (>3 areas) *Moderate pharyngeal dysphagia ASPIRATION RISK Additional *Reduced laryngeal elevation and hyoid movement Pharyngeal *No epiglottic inversion was observed. Impairment *Tongue base retraction strength and stripping of the Observations posterior pharyngeal wall were moderately reduced resulting in diffuse pharyngeal residual pooling. *Cricopharyngeal opening appeared adequate and did not appear to impede bolus flow. *Posterior pharyngeal wall stripping absent/not observed; diminished bolus control *Post-swallow residue pooled in the vallecula, pyriform sinuses; residue observed at base of tongue and posterior pharyngeal wall *Laryngeal penetration (x8) of thin barium and pharyngeal secretions were observed to contact the folds with visible laryngeal residue (PAS 5). Spontaneous cough/throat clear did not clear residue, despite frequent coughing *No penetration of mildly thick/nectar thick liquid observed *Left head turn effective in reducing laryngeal penetration/residue. Right head turn increased penetration. *No tracheal aspiration observed across trials *No tracheal observation observed A/P View The IDDSI Framework Protocol: IDDSI.1 A/P View Observations Esophageal Clearance Esophageal retention w/regtrograde flow below Upright Position pharyngoesoph segment Vocal Fold Function Decrease Approxim. Left Esophageal Function Slowed Clearing,Reverse Peristalsis,Narrowing Additional A-P *Esophageal retention of prior trials with repetitive Observations retro-flow to the clavicles *Narrowing of the distal esophagus near LES with delayed clearance to the stomach of barium trial as well as barium tablet *MBSS stopped before the barium tablet entered the stomach (limit radiation exposure ) Clinical Impressions Dysphagia Type Oral,Pharyngeal Findings Mild oral and moderate pharyngeal dysphagia. PLEASE SEE THE ABOVE ORAL/PHARYNGEAL IMPAIRMENT OBSERVATIONS FOR DETAILS *Pt is at a moderate risk of aspiration. *Mildly thick/nectar thick liquids are recommended with a soft and bite sized texture. 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 Recommend stroboscopic assessment . Recommend referral to [facility]: Dr. Polk *Pt to continue ST for swallow therapy targeting base of tongue/pharyngeal strengthening. Therapeutic exercises would include the following exercises: Musako, the Norma and effortful swallow *Thin water using Obdulia Free Water protocol OK The results and recommendations of the MBSS were described to the pt while observing still pictures taken during the MBSS. Pt and sister expressed appreciation and indicated they understood. All questions were addressed. Patient Appropriate Yes for Therapy Recommendations Diet Liquids Order Mildly Thick (IDDSI 2) Diet Order Soft & Bite-sized (IDDSI 6) Aspiration Precautions Recommended Alternate Liquids/Solids,Small Bites/Sips Precautions Additional Slow rate of intake to allow for esophageal clearance Precautions Treatment Plan Therapy Outpatient Speech Therapy Recommendations Recommended GI Consult,ENT Consult Referrals Additional ENT with stroboscopy/ GI for retroflow/distal narrowing Recommended Referrals Therapy Strategy Turn Head Left,Small Bites and Sips,Alternate Liquids/ Recommendations Solids
== END ==
LOC: RAD 10:38
PROVIDERS: PCP Nurse Practitioner Family; Referring Provider Nurse Practitioner Family; Visit Provider Nurse Practitioner Family
DX: R13.12 Dysphagia, oropharyngeal phase (principal)
CPT/HCPCS: 74230; 92611

== ENCOUNTER → 2025-05-20 07:08 | Outpatient (CLI) | payer MEDICAID, MEDICARE, SELFPAY ==
[2024-12-23 18:24] VITALS: BMI 25.8
--- NOTE | 2025-05-20 07:13 | DI.US.S_ITS ---
PROCEDURE: US RENAL COMPLETE INDICATIONS: chronic kidney disease TECHNIQUE: Real-time scanning was performed of the kidneys and bladder, with image documentation. COMPARISON: None. FINDINGS: Kidneys: Kidneys are normal in size. Right kidney measures 9.8 cm long; left kidney measures 11.1 cm long. Right renal cortical thickness is 1.6 cm; left renal cortical thickness is 1.5 cm. The background renal echogenicity is mildly increased. An echogenic 0.5 cm focus in the left lower pole is too small to be characterized by cross-sectional imaging but may represent an angiomyolipoma. This could be followed with a renal ultrasound in 6 months.. No hydronephrosis or nephrolithiasis. No suspicious solid mass lesions. Bladder: Pre-void bladder volume is 451 mL. Post-void residual is 286 mL. Pre-void images demonstrate no intraluminal masses or stones. On pre-void images, the right ureteral jets are noted with color Doppler interrogation. (Of note, ureteral jets may not be detectable in up to 25% of cases due to insufficient differences in specific gravity between ureteral and bladder urine). Miscellaneous: No free pelvic fluid. IMPRESSION: Bilateral increased renal echogenicity, which can be seen with medical renal disease. A 0.5 cm cortically based hyperechoic focus in the left lower pole is too small to be characterized by cross-sectional imaging but may represent an angiomyolipoma. This could be followed with a renal ultrasound in 6 months. Postvoid residual of 286 cc. Dictated by: Rosalio Mccormick M.D. on 05/20/2025 at 15:17 Approved by: Rosalio Mccormick M.D. on 05/20/2025 at 15:20
== END ==
PROVIDERS: PCP Nurse Practitioner Family; Referring Provider Student in an Organized Health Care Education/Training Program; Visit Provider Student in an Organized Health Care Education/Training Program
DX: N18.2 Chronic kidney disease, stage 2 (mild) (principal)
CPT/HCPCS: 76770